=== PATIENT | female | born 1955 | race Caucasian/White ===

== ENCOUNTER 2019-01-09 17:33 | Emergency (ER) | payer OTHER ==
[~2019-01-09] VITALS: Ht 167.6 cm; Wt 78.0 kg
[2019-01-09 20:06] VITALS: BP 143/84
== END 2019-01-09 21:56 | disposition home or self-care (01) ==
LOC: ER 17:34
DX: I83.813 Varicose veins of bilateral lower extremities with pain (principal); E11.9 Type 2 diabetes mellitus without complications; I10 Essential (primary) hypertension; F17.210 Nicotine dependence, cigarettes, uncomplicated; Z98.51 Tubal ligation status; Z88.0 Allergy status to penicillin
CPT/HCPCS: 93971

== ENCOUNTER 2019-02-18 15:28 | Inpatient (IN) | payer OTHER ==
[~2019-02-18] VITALS: Ht 167.6 cm; Wt 86.2 kg
[2019-02-18] MEDS ORDERED: SODIUM CHLORIDE 0.9% 1,000 ML IVB ONE (15:48)
[2019-02-18 16:35] LABS: Basophils # (auto) 0.1 uL; Basophils % (auto) 1.2 % (0.0-2.0); Eosinophils # (auto) 0.2 uL; Eosinophils % (auto) 3.1 % (0.0-7.0); Hematocrit 44.2 % (36.0-46.0); Hemoglobin 14.7 g/dL (12.2-16.2); Lymphocytes # (auto) 1.5 uL; Mean Corpuscular Hgb Conc. 33.1 g/dL (32.0-36.0); Mean Corpuscular Volume 90.5 fL (80.0-100.0); Monocytes # (auto) 0.5 uL; Monocytes % (auto) 9.1 % (0.0-12.0); Neutrophils # (auto) 3.5 uL; Neutrophils % (auto) 60.6 % (37.0-80.0); Platelet Count (auto) 141 10^3/uL (140-450); Red Blood Cells 4.89 10^6/uL (4.0-5.20); Red Cell Distribution Width 14.3 % (11.8-14.3); White Blood Cell 5.8 10^3/uL (4.4-10.8)
[2019-02-18 16:38] LABS: Alanine Aminotransferase 20 U/L (13-56); Albumin 2.7 g/dL (3.4-5.0); Anion Gap 12 (5-15); Aspartate Aminotransferase 14 U/L (15-37); BUN/Creatinine Ratio 15.9; Blood Urea Nitrogen 13 mg/dL (7-18); Calcium 7.8 mg/dL (8.5-10.1); Carbon Dioxide 21 mmol/L (21-32); Chloride 114 mmol/L (98-107); GFR African American 91 mL/min; GFR Non-African American 75 mL/min; Glucose 106 mg/dL (74-106); Magnesium 1.9 mg/dL (1.6-2.6); Potassium 3.5 mmol/L (3.5-5.1); Salicylate 4.1 mg/dL (2.8-20.0); Sodium 147 mmol/L (136-145)
[2019-02-18 16:40] LABS: Acetaminophen < 2.0 ug/mL (10-30); Alkaline Phosphatase 70 U/L (45-117); Bilirubin, Total 0.1 mg/dL (0.2-1.0); Total Protein 5.9 g/dL (6.4-8.2)
[2019-02-18 17:41] LABS: Amphetamine Screen, Urine POSITIVE (NEGATIVE); Barbiturate Scree,Urine NEGATIVE (NEGATIVE); Benzodiazephine Screen, Urine NEGATIVE (NEGATIVE); Cannabinoid Screen, Urine NEGATIVE (NEGATIVE); Cocaine Screen, Urine NEGATIVE (NEGATIVE); Opiate Scree,Urine NEGATIVE (NEGATIVE); Phencyclidine Screen, Urine NEGATIVE (NEGATIVE)
[2019-02-18 17:45] LABS: Urine Bacteria FEW /hpf (None Seen); Urine Blood Negative /uL (Negative); Urine Hyaline Cast MANY /lpf (0 - 2); Urine Mucus FEW (None Seen); Urine Specific Gravity 1.014 (1.001-1.035); Urine WBC 61 /hpf (0 - 5)
[2019-02-18] MEDS ORDERED: MORPHINE SULF INJ 2 MG/ML SYRINGE 1ML IV PRN ×2 (19:15)
[2019-02-18] MEDS ORDERED: HYDROcodone-ACET 5/325MG TAB PO PRN (19:15)
[2019-02-18] MEDS ORDERED: ACETAMINOPHEN 500 MG TAB PO PRN (19:15)
[2019-02-18] MEDS ORDERED: LORazepam 2MG/ML-1ML VIAL IV PRN (19:15)
[2019-02-18] MEDS ORDERED: NITROGLYCERIN 0.4 MG SL TAB SL PRN (19:15)
[2019-02-18] MEDS ORDERED: ONDANSETRON HCL 4 MG/2 ML VIAL IV PRN (19:15)
[2019-02-18] MEDS ORDERED: LORazepam 2MG/ML-1ML VIAL IV ONE (19:15)
[2019-02-18] MEDS ORDERED: cefTRIAXone 1GM/50ML D5W 50 ML IV ONE (19:30)
[2019-02-18] MEDS ORDERED: FOLIC ACID 1 MG, MULTIPLE VITAMIN 10 ML, MAGNESIUM SULF SDV 50% 8 MEQ, THIAMINE INJ 100... INJ SCH ×5 (20:00)
--- NOTE | 2019-02-18 21:50 | NUR ---
OPENING NOTE/PT ENCOUNTER PT ARRIVED ON UNIT AT 2150 VIA STRETCH WITH NO S/S OF DISTRESS OR SOB. WILL CONTINUE TO MONITOR FOR CHANGES. SITTER IS PRESENT IN ROOM.
--- NOTE | 2019-02-18 22:14 | NUR ---
POISON CONTROL CONTACT BIANCA FROM POISON CONTROL CALLED AND REQUESTED AN UPDATE ON PTS SALICYLATE LEVEL. CURRENT LEVEL IS 5.0, PREVIOUS LEVEL WAS 4.1/ POISON CONTROL SUGGESTED THAT A REPEAT SALICYLATE LEVEL BE DONE. WILL FOLLOW UP.
[2019-02-18 22:20] VITALS: BP 130/66
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
--- NOTE | 2019-02-18 23:20 | NUR ---
PT STATES THAT SHE WISHED TO LEAVE AMA PT STATES THAT SINCE SHE HAS 'BEEN HERE FOR MORE THAN 6 HOURS', SHE WISHES TO LEAVE. DISCUSSED WITH PT REASONS FOR LEAVING AND THE BENEFITS OF STAYING; TELE-PSYCHE CONSULT TO ENSURE OF HER SAFETY AND WELL BEING WELL ELEVATED LEVELS OF MEDICATION IN HER SYSTEM. PT STATES THAT SHE UNDERSTANDS AND STILL WISHES TO LEAVE AND ASKED HOW SHE CAN GO ABOUT THIS. I TOLD HER I WOULD SPEAK TO MY CHARGE.
--- NOTE | 2019-02-18 23:26 | NUR ---
TELE-PSYCH CONSULT CALLED SPOKE TO LALY VIA PHONE TO SET UP TELE-PSYCH CONSULT
--- NOTE | 2019-02-18 23:40 | NUR ---
SPOKE WITH CHARGE SPOKE WITH KEITH ABOUT THE WISHES OF PT LEAVING AGAINST MEDICAL ADVICE. KEITH CALLED LEILA ONEILL TO CONFIRM THE LEGALITY OF THE PT LEAVING. AFTER HAVING SPOKE WITH LEILA ONEILL, KEITH INFORMED ME THAT THE PT COULD LEAVE AMA AND TO PROVIDE ADDITIONAL EDUCATION REGARDING POC OF PT.
--- NOTE | 2019-02-18 23:49 | NUR ---
PT STATES THAT HER FRIEND MALENA WOULD BE ABLE TO PICK HER UP FROM [facility]
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
--- NOTE | 2019-02-19 00:21 | NUR ---
IVS DISCONTINUED BOTH IVS, ONE IN RIGHT HAND AND ONE IN LEFT HAND HAVE BEEN DISCONTINUED, DUE TO PT DESIRES TO LEAVE AMA. BOTH CATHETERS ARE FULLY INTACT WITH NO S/S OF INFECTION. PRESSURE WAS APPLIED TO BOTH SITES FOR 3 MINUTES AND THEN WRAPPED IN COBAN. EDUCATED PT REGARDING THE NEED FOR COBAN AND GAUZE TO STAY ON FOR AT LEAST 30 MINUTES. PT TOLERATED REMOVALS WELL. PT IS ASYMPTOMATIC.
--- NOTE | 2019-02-19 00:28 | NUR ---
PT LEFT UNIT PT LEFT UNIT WITH IV'S REMOVED AND TELE BOX LEFT IN ROOM. PT AMBULATED OFF UNIT WITH FRIEND MALENA. REASSURED PT THAT IF SHE NEEDS ANYTHING TO COME BACK TO THE ED OR TO THE CRISIS CENTER. PT VERBALIZED UNDERSTANDING.
[2019-02-19] MEDS ORDERED: cefTRIAXone 1GM/50ML D5W 50 ML IV SCH (09:00)
[2019-02-19] MEDS ORDERED: DULoxetine HCL 30 MG CAP PO SCH (10:00)
== END 2019-02-19 00:30 | disposition left against medical advice (07) | DRG 918 ==
LOC: EDBD 15:28 → ER 15:47 → TELE 15:48 → TELE-WESTW 21:44
PROVIDERS: ADMIT Nurse Practitioner Acute Care; ATTEND Nurse Practitioner Acute Care
DX: T43.591A Poisoning by other antipsychotics and neuroleptics, accidental (unintentional), initial encounter (principal); E44.0 Moderate protein-calorie malnutrition; N39.0 Urinary tract infection, site not specified; T42.8X1A Poisoning by antiparkinsonism drugs and other central muscle-tone depressants, accidental (unintentional), initial encounter; F32.9 Major depressive disorder, single episode, unspecified; E11.9 Type 2 diabetes mellitus without complications; I10 Essential (primary) hypertension; F41.9 Anxiety disorder, unspecified; M54.9 Dorsalgia, unspecified; F17.210 Nicotine dependence, cigarettes, uncomplicated; F15.90 Other stimulant use, unspecified, uncomplicated; E86.0 Dehydration; Z82.49 Family history of ischemic heart disease and other diseases of the circulatory system; Z68.30 Body mass index [BMI] 30.0-30.9, adult; Y92.098 Other place in other non-institutional residence as the place of occurrence of the external cause; Z88.0 Allergy status to penicillin; Z83.3 Family history of diabetes mellitus; Z53.21 Procedure and treatment not carried out due to patient leaving prior to being seen by health care provider
CPT/HCPCS: 36415; 71045; 80053; 80307; 80320; 80329; 81001; 83735; 85025; 93005; 94761; 96361; 96365; 96367; G0378; J0696

== ENCOUNTER 2019-02-23 10:28 | Inpatient (IN) | payer OTHER ==
[~2019-02-23] VITALS: Ht 167.6 cm; Wt 79.5 kg
[2019-02-23] MEDS ORDERED: SODIUM CHLORIDE 0.9% 1,000 ML IVB ONE (10:35)
[2019-02-23] MEDS ORDERED: MORPHINE SULFATE 4 MG/ML SYR/VIAL IV ONE (10:45)
[2019-02-23] MEDS ORDERED: ONDANSETRON HCL 4 MG/2 ML VIAL IV ONE (10:45)
[2019-02-23 10:57] LABS: Basophils # (auto) 0 uL; Basophils % (auto) 0.3 % (0.0-2.0); Eosinophils # (auto) 0.1 uL; Eosinophils % (auto) 0.7 % (0.0-7.0); Hematocrit 48.3 % (36.0-46.0); Hemoglobin 15.9 g/dL (12.2-16.2); Lymphocytes # (auto) 1.1 uL; Lymphocytes % (auto) 8.4 % (10.0-50.0); Mean Corpuscular Hemoglobin 29.5 pg (28.0-32.0); Mean Corpuscular Hgb Conc. 32.8 g/dL (32.0-36.0); Mean Corpuscular Volume 89.8 fL (80.0-100.0); Monocytes # (auto) 0.7 uL; Monocytes % (auto) 5.5 % (0.0-12.0); Neutrophils # (auto) 11.4 uL; Neutrophils % (auto) 85.1 % (37.0-80.0); Platelet Count (auto) 149 10^3/uL (140-450); Red Blood Cells 5.38 10^6/uL (4.0-5.20); Red Cell Distribution Width 14.5 % (11.8-14.3); White Blood Cell 13.4 10^3/uL (4.4-10.8)
[2019-02-23 11:11] LABS: Calcium 8.6 mg/dL (8.5-10.1); Magnesium 2.5 mg/dL (1.6-2.6); Potassium 3.9 mmol/L (3.5-5.1)
[2019-02-23 11:14] LABS: BUN/Creatinine Ratio 18.5; Bilirubin, Total 0.6 mg/dL (0.2-1.0)
[2019-02-23] MEDS ORDERED: metroNIDAZOLE 500MG/100ML 100 ML IV ONE (11:45)
[2019-02-23] MEDS ORDERED: NITROGLYCERIN 0.4 MG SL TAB SL PRN (13:15)
[2019-02-23] MEDS ORDERED: PROMETHAZINE HCL 25 MG/ML 1ML IV PRN (13:15)
[2019-02-23] MEDS ORDERED: MORPHINE SULF INJ 2 MG/ML SYRINGE 1ML IV PRN (13:15)
[2019-02-23] MEDS ORDERED: DEXTROSE (50%) 50ML SYRG IV PRN (13:15)
[2019-02-23] MEDS ORDERED: SODIUM CHLORIDE 0.9% 2,000 ML IV ONE (13:15)
[2019-02-23] MEDS ORDERED: LEVOFLOXACIN 500MG 100 ML IV ONE (13:15)
[2019-02-23] MEDS: FAMOTIDINE (10MG/ML) 2ML VL IV SCH (13:36)
[2019-02-23] MEDS: metroNIDAZOLE 500MG/100ML 100 ML IV SCH ×2 (14:00→22:00)
[2019-02-23] MEDS: InsuLIN REG 1unit/0.01ml Soln (100units/ml) SC SCH ×2 (17:00→22:00)
[2019-02-23] MEDS: traMADol HCL 50 MG TAB PO PRN ×3 (17:24→23:57)
[2019-02-23] MEDS: ACCU-CHEK COMFORT CURVE STRIP VI SCH ×2 (17:28→22:00)
[2019-02-23] MEDS: SODIUM CHLORIDE 0.9% 1,000 ML IV SCH ×2 (17:57→23:10)
[2019-02-23] MEDS ORDERED: VANCOMYCIN HCL 125MG/5ML ORAL SOL GT SCH (18:00)
[2019-02-23 19:34] LABS: Urine Bacteria NONE SEEN /hpf (None Seen); Urine Mucus FEW (None Seen); Urine WBC 65 /hpf (0 - 5)
[2019-02-23 19:35] LABS: Urine Blood Negative /uL (Negative); Urine Specific Gravity 1.012 (1.001-1.035)
[2019-02-24] VITALS (8 sets, daily range): BP systolic 99–138; BP diastolic 59–85
[2019-02-24] MEDS ORDERED: VANCOMYCIN HCL 125MG/5ML ORAL SOL PO ONE
[2019-02-24] MEDS: FAMOTIDINE (10MG/ML) 2ML VL IV SCH ×2 (00:48→14:44)
[2019-02-24] MEDS: TEMAZEPAM 15 MG CAP PO PRN ×2 (00:48→20:23)
--- NOTE | 2019-02-24 00:56 | NUR ---
Telemetry admit from ER EDGARDO HERNANDEZ admitted to Telemetry unit after SBAR received. Patient oriented to THEA TREJO RN primary RN, unit, room, bed, and unit policies regarding patient care and visiting hours. Patient now on continuous telemetry monitoring, tele box # 13 and telemetry reading on arrival to unit is SR. Patient placed on bedside oxygen, weighed by bedscale and encouraged to call if they need something. Patient placed on enhanced contact isolation to rule out for c-diff. All questions and concerns addressed, patient verbalized understanding. Note:
[2019-02-24] MEDS: ACETAMINOPHEN 500 MG TAB PO PRN ×2 (05:01→15:57)
[2019-02-24] MEDS: metroNIDAZOLE 500MG/100ML 100 ML IV SCH ×3 (05:02→20:23)
[2019-02-24] MEDS: VANCOMYCIN HCL 125MG/5ML ORAL SOL PO SCH ×4 (06:00→20:23)
[2019-02-24] MEDS: SODIUM CHLORIDE 0.9% 1,000 ML IV SCH ×2 (06:01→20:22)
[2019-02-24] MEDS: InsuLIN REG 1unit/0.01ml Soln (100units/ml) SC SCH ×4 (06:18→20:30)
[2019-02-24] MEDS: ACCU-CHEK COMFORT CURVE STRIP VI SCH ×4 (06:19→20:23)
[2019-02-24 06:36] LABS: Basophils # (auto) 0 uL; Basophils % (auto) 0.2 % (0.0-2.0); Eosinophils # (auto) 0.2 uL; Hematocrit 41.2 % (36.0-46.0); Hemoglobin 13.7 g/dL (12.2-16.2); Lymphocytes # (auto) 0.9 uL; Lymphocytes % (auto) 11.9 % (10.0-50.0); Mean Corpuscular Hemoglobin 30.1 pg (28.0-32.0); Mean Corpuscular Hgb Conc. 33.3 g/dL (32.0-36.0); Mean Corpuscular Volume 90.3 fL (80.0-100.0); Monocytes # (auto) 0.6 uL; Monocytes % (auto) 7.4 % (0.0-12.0); Neutrophils % (auto) 78.5 % (37.0-80.0); Platelet Count (auto) 110 10^3/uL (140-450); Red Blood Cells 4.56 10^6/uL (4.0-5.20); Red Cell Distribution Width 14.4 % (11.8-14.3); White Blood Cell 7.6 10^3/uL (4.4-10.8)
[2019-02-24 06:55] LABS: Albumin 2.6 g/dL (3.4-5.0); Calcium 7.7 mg/dL (8.5-10.1); Potassium 3.6 mmol/L (3.5-5.1)
[2019-02-24 06:58] LABS: BUN/Creatinine Ratio 17.2; Bilirubin, Total 0.4 mg/dL (0.2-1.0); Total Protein 5.7 g/dL (6.4-8.2)
--- NOTE | 2019-02-24 07:30 | NUR ---
Opening Shift Note Assumed care of patient, awake and alert. No S/S of distress/SOB. Patient reported intermittent abdominal pain and diarrhea. Instructed on POC-continue IV fluids, IV and oral antibiotics. Patient informed to call for assist PRN, will continue to monitor for changes Q1hr and PRN.
[2019-02-24] MEDS: traMADol HCL 50 MG TAB PO PRN ×2 (08:30→15:56)
[2019-02-24] MEDS ORDERED: LEVOFLOXACIN 500MG 100 ML IV SCH (10:00)
[2019-02-24] MEDS: Glucerna Carbsteady SHAKE Vanilla 8oz PO SCH (18:08)
[2019-02-25] MEDS: FAMOTIDINE (10MG/ML) 2ML VL IV SCH ×2 (02:53→21:52)
[2019-02-25] MEDS: ACETAMINOPHEN 500 MG TAB PO PRN (02:53)
[2019-02-25] MEDS: traMADol HCL 50 MG TAB PO PRN ×3 (02:59→20:26)
[2019-02-25 05:08] VITALS: BP 125/69
[2019-02-25] MEDS: SODIUM CHLORIDE 0.9% 1,000 ML IV SCH ×3 (05:10→20:27)
[2019-02-25] MEDS: VANCOMYCIN HCL 125MG/5ML ORAL SOL PO SCH ×4 (05:47→21:52)
[2019-02-25] MEDS: InsuLIN REG 1unit/0.01ml Soln (100units/ml) SC SCH ×4 (05:47→21:53)
[2019-02-25] MEDS: ACCU-CHEK COMFORT CURVE STRIP VI SCH ×4 (05:47→21:52)
[2019-02-25] MEDS: metroNIDAZOLE 500MG/100ML 100 ML IV SCH (05:47)
[2019-02-25 06:37] LABS: Basophils # (auto) 0 uL; Basophils % (auto) 0.3 % (0.0-2.0); Eosinophils # (auto) 0.2 uL; Eosinophils % (auto) 3.2 % (0.0-7.0); Hematocrit 40.5 % (36.0-46.0); Hemoglobin 13.7 g/dL (12.2-16.2); Lymphocytes # (auto) 1.2 uL; Lymphocytes % (auto) 18.1 % (10.0-50.0); Mean Corpuscular Hemoglobin 30.4 pg (28.0-32.0); Mean Corpuscular Hgb Conc. 33.9 g/dL (32.0-36.0); Mean Corpuscular Volume 89.7 fL (80.0-100.0); Monocytes # (auto) 0.6 uL; Monocytes % (auto) 9.1 % (0.0-12.0); Neutrophils # (auto) 4.8 uL; Neutrophils % (auto) 69.3 % (37.0-80.0); Platelet Count (auto) 134 10^3/uL (140-450); Red Blood Cells 4.52 10^6/uL (4.0-5.20); Red Cell Distribution Width 14.2 % (11.8-14.3); White Blood Cell 6.9 10^3/uL (4.4-10.8)
[2019-02-25 06:41] LABS: BUN/Creatinine Ratio 15.1; Calcium 7.7 mg/dL (8.5-10.1); Potassium 3.7 mmol/L (3.5-5.1)
[2019-02-25 08:00] VITALS: BP 144/96
--- NOTE | 2019-02-25 08:00 | NUR ---
Opening note Assumed care of patient awake and alert. No S/S of distress noted. Pt has a complaint of abd pain and reports having 3 episodes of diarrhea yesterday. Pt updated on POC for the day and all questions answered. Bed is in lowest, locked position with side rails up x2 and call light within reach. Will continue to monitor Q1h and PRN.
[2019-02-25 09:00] VITALS: BP 144/96
[2019-02-25] MEDS: Glucerna Carbsteady SHAKE Vanilla 8oz PO SCH ×3 (09:00→18:34)
[2019-02-25 13:00] VITALS: BP 152/85
[2019-02-25] MEDS: metroNIDAZOLE 500 MG TAB PO SCH ×2 (14:50→21:52)
[2019-02-25] MEDS: HYOSCYAMINE SULF 0.125 MG ODT TAB PO PRN (14:51)
[2019-02-25 17:00] VITALS: BP 141/85
[2019-02-25 21:47] VITALS: BP 142/96
[2019-02-26 04:58] VITALS: BP 119/75
[2019-02-26] MEDS: ACETAMINOPHEN 500 MG TAB PO PRN (05:04)
[2019-02-26] MEDS: metroNIDAZOLE 500 MG TAB PO SCH ×3 (05:52→22:02)
[2019-02-26] MEDS: VANCOMYCIN HCL 125MG/5ML ORAL SOL PO SCH ×4 (05:52→22:02)
[2019-02-26] MEDS: InsuLIN REG 1unit/0.01ml Soln (100units/ml) SC SCH ×4 (06:22→22:00)
[2019-02-26] MEDS: ACCU-CHEK COMFORT CURVE STRIP VI SCH ×4 (06:22→22:03)
[2019-02-26 08:00] VITALS: BP 146/96
--- NOTE | 2019-02-26 08:03 | NUR ---
Opening Shift Note Assumed care of patient, resting in bed, respirations even and unlabored. No S/S of distress/SOB or pain. POC board updated, will continue to monitor for changes Q1hr and PRN.
[2019-02-26 09:00] VITALS: BP 146/96
[2019-02-26] MEDS: Glucerna Carbsteady SHAKE Vanilla 8oz PO SCH ×3 (10:41→17:45)
[2019-02-26] MEDS: FAMOTIDINE (10MG/ML) 2ML VL IV SCH ×2 (10:41→22:02)
--- NOTE | 2019-02-26 11:10 | NUR ---
PT OFF TELE MONITOR. PT NOT IN ROOM, AMA SIGNED FOR SMOKE. Signed: 02/26/19 at 1114 by DARKE WILDE <Co-Signature Required> Co-Signed: 02/26/19 at 1114 by Maty Melgar RN RN
[2019-02-26] MEDS: SODIUM CHLORIDE 0.9% 1,000 ML IV SCH ×2 (11:54→21:10)
--- NOTE | 2019-02-26 12:19 | NUR ---
Nutrition Assessment Notes please see attached link for complete assessment Est. Needs ABW [id number] kcal (23-25 kcal/kgBW), 72-79 gms pro (1.0-1.1 gms/kgBW). Will continue to monitor pertinent labs and reassess nutrient need prn Addendum: 02/26/19 at [address] Amended: Links added.
[2019-02-26 12:37] VITALS: BP 118/83
--- NOTE | 2019-02-26 13:40 | NUR ---
PATIENT ROUNDS PATIENT STATED TO HAVE HAD TWO BOWEL MOVEMENTS ON 02/26. PER PATIENT ABDOMINAL DISCOMFORT/PAIN OCCURRED AFTER EATING MEALS, FOLLOWED BY BOWEL MOVEMENTS BOTH TIMES, WHICH RELIEVED SOME OF THE DISCOMFORT. PATIENT STATED "THEY WERE SOFT, BUT BETTER THAN YESTERDAY" REFERRING TO CONSISTENCY OF BM. PATIENT STATED SHE WAS CURRENTLY COMFORTABLE AND DID NOT NEED ANYTHING AT THAT TIME. BED IN LOWEST POSITION, BRAKES LOCKED, AND CALL LIGHT WITHIN REACH. Signed: 02/26/19 at 1734 by DRAKE WILDE <Co-Signature Required> Co-Signed: 02/26/19 at 1734 by Maty Melgar RN RN
[2019-02-26 16:56] VITALS: BP 147/89
--- NOTE | 2019-02-26 19:15 | NUR ---
OPEN SHIFT NOTE PATIENT IS ALERT AND ORIENTED X4 ON ROOM AIR. PATIENT COMPLAINS OF PAIN AT THE IV SITE. IV REMOVED WITH STERILE TECHNIQUE, PATIENT TOLERATED WELL. POC WAS DISCUSSED AND QUESTIONS ANSWERED. BED IS LOCKED IN LOWEST POSITION WITH SIDE RAILS UP X2 FOR SAFETY. CALL LIGHT IS WITHIN REACH AND PATIENT ENCOURAGED TO CALL IF NEEDS ANYTHING. WILL CONTINUE TO ROUND Q1HR AND PRN.
--- NOTE | 2019-02-26 20:00 | NUR ---
IV insertion IV access obtained, via clean sterile technique by inserting 24 gauge catheter in the left hand after 2 attempt(s). IV secured properly. No trauma to site. Patient tolerated well.
[2019-02-26] MEDS: traMADol HCL 50 MG TAB PO PRN (20:53)
[2019-02-26 21:46] VITALS: BP 157/106
[2019-02-26] MEDS: TEMAZEPAM 15 MG CAP PO PRN (22:04)
[2019-02-26] MEDS: HYOSCYAMINE SULF 0.125 MG ODT TAB PO PRN (22:04)
[2019-02-27] MEDS: SODIUM CHLORIDE 0.9% 1,000 ML IV SCH ×2 (01:16→07:10)
[2019-02-27 05:00] VITALS: BP 134/78
[2019-02-27] MEDS: VANCOMYCIN HCL 125MG/5ML ORAL SOL PO SCH ×2 (05:58→11:55)
[2019-02-27] MEDS: metroNIDAZOLE 500 MG TAB PO SCH (05:58)
[2019-02-27] MEDS: ACCU-CHEK COMFORT CURVE STRIP VI SCH ×2 (06:03→11:30)
[2019-02-27] MEDS: HYOSCYAMINE SULF 0.125 MG ODT TAB PO PRN (06:03)
[2019-02-27] MEDS: InsuLIN REG 1unit/0.01ml Soln (100units/ml) SC SCH ×2 (06:03→11:30)
[2019-02-27 08:00] VITALS: BP 146/84
[2019-02-27] MEDS: Glucerna Carbsteady SHAKE Vanilla 8oz PO SCH ×2 (08:00→12:00)
--- NOTE | 2019-02-27 08:00 | NUR ---
OPENING SHIFT NOTE SHIFT REPORT RECEIVED FROM CUSTOMER ACCOUNT EXECUTIVE RN. PATIENT ROUNDS DONE, PATIENT WAS NOT IN ROOM (AMA TO SMOKE ON FILE).
--- NOTE | 2019-02-27 08:30 | NUR ---
PATIENT ROUNDS PATIENT IS DANGLING FEET AT EDGE OF BED, AOX4, NO SIGNS OF DISTRESS AT THIS TIME. PATIENT REPORTS ABDOMINAL PAIN AND FEELING CONSTIPATED LAST NIGHT. STATES PAIN IS CURRENTLY UNDER CONTROL, BUT STILL FEELS CONSTIPATED. PER PATIENT, WAS ABLE TO EAT BREAKFAST WITHOUT ABDOMINAL PAIN FOLLOWING MEAL. BED IN LOWEST POSITION, BRAKES LOCKED, AND CALL LIGHT WITHIN REACH. PATIENT UPDATED ON POC, PT VERBALIZED UNDERSTANDING.
--- NOTE | 2019-02-27 10:20 | NUR ---
DR KIRK AT BEDSIDE.
[2019-02-27] MEDS: FAMOTIDINE (10MG/ML) 2ML VL IV SCH (10:38)
[2019-02-27 12:21] VITALS: BP 146/84
--- NOTE | 2019-02-27 13:55 | NUR ---
Discharge instructions given as ordered. Encourage to follow up with PMD as instructed. All questions and concerns addressed. Patient verbalized understanding. Medication reconciliation form completed and copy given to patient. IV removed with catheter intact, pressure dressing applied. Telemetry unit returned to ICU. Patient ambulated to vehicle, refused wheelchair, with all personal belongings, accompanied by staff and family member. No distress noted at time of departure. BP was 141/84 mmHg
== END 2019-02-27 13:55 | disposition home or self-care (01) | DRG 872 ==
LOC: ER 10:29 → TELE 10:30 → TELE-EAST 23:32
PROVIDERS: ADMIT Internal Medicine; ATTEND Internal Medicine Pulmonary Disease
DX: A41.9 Sepsis, unspecified organism (principal); A04.72 Enterocolitis due to Clostridium difficile, not specified as recurrent; E44.0 Moderate protein-calorie malnutrition; K57.32 Diverticulitis of large intestine without perforation or abscess without bleeding; D35.00 Benign neoplasm of unspecified adrenal gland; F41.9 Anxiety disorder, unspecified; E11.9 Type 2 diabetes mellitus without complications; F19.10 Other psychoactive substance abuse, uncomplicated; F17.210 Nicotine dependence, cigarettes, uncomplicated; F32.9 Major depressive disorder, single episode, unspecified; I10 Essential (primary) hypertension; K76.0 Fatty (change of) liver, not elsewhere classified; N20.0 Calculus of kidney; Z82.49 Family history of ischemic heart disease and other diseases of the circulatory system; Z68.28 Body mass index [BMI] 28.0-28.9, adult; Z83.3 Family history of diabetes mellitus; Z88.0 Allergy status to penicillin
CPT/HCPCS: 36415; 74176; 80048; 80053; 81001; 82962; 83036; 83690; 83735; 85025; 85652; 86141; 87045; 87493; 87899; 94761; 96361; 96365; 96367; 96375; G0378; J1956; J2405; J3490

== ENCOUNTER 2022-09-13 17:18 | Inpatient (IN) | payer OTHER, MEDICARE ==
[~2022-09-13] VITALS: Ht 167.6 cm; Wt 80.9 kg
[2022-09-13 18:57] LABS: Basophils # (auto) 0 10 ^3/uL (0-0.2); Basophils % (auto) 0.5 % (0.0-2.0); Eosinophils # (auto) 0.1 10 ^3/uL (0-0.8); Eosinophils % (auto) 1.5 % (0.0-7.0); Hematocrit 46.3 % (36.0-46.0); Hemoglobin 15.5 g/dL (12.2-16.2); Lymphocytes # (auto) 1.3 10 ^3/uL (0.4-5.4); Lymphocytes % (auto) 18.6 % (10.0-50.0); Mean Corpuscular Hemoglobin 29.4 pg (28.0-32.0); Mean Corpuscular Hgb Conc. 33.4 g/dL (32.0-36.0); Mean Corpuscular Volume 88.1 fL (80.0-100.0); Monocytes # (auto) 0.3 10 ^3/uL (0-1.3); Monocytes % (auto) 3.5 % (0.0-12.0); Neutrophils # (auto) 5.5 10 ^3/uL (1.6-8.6); Neutrophils % (auto) 75.9 % (37.0-80.0); Nucleated Red Blood Cells % 0.1 %; Red Blood Cells 5.26 10^6/uL (4.0-5.20); Red Cell Distribution Width 14.6 % (11.8-14.3); White Blood Cell 7.2 10^3/uL (4.4-10.8)
[2022-09-13 19:08] LABS: Albumin 3.5 g/dL (3.4-5.0); Calcium 9.1 mg/dL (8.5-10.1); Potassium 3.8 mmol/L (3.5-5.1)
[2022-09-13 19:11] LABS: BUN/Creatinine Ratio 24.4
[2022-09-13 19:14] LABS: Bilirubin, Total 0.4 mg/dL (0.2-1.0); Total Protein 7.1 g/dL (6.4-8.2)
[2022-09-13] MEDS ORDERED: FLUORESCEIN SOD OPTH TEST STRIP RIGHTEYE ONE (23:45)
[2022-09-14] MEDS ORDERED: DEXTROSE (50%) 50ML SYRG IV PRN (03:45)
[2022-09-14] MEDS ORDERED: ACETAMINOPHEN 325 MG TAB PO PRN (03:45)
[2022-09-14] MEDS ORDERED: ONDANSETRON HCL 4 MG/2 ML VIAL IV PRN (03:45)
[2022-09-14] MEDS: SODIUM CHLORIDE 0.9% 1,000 ML IV SCH ×2 (04:21→20:25)
[2022-09-14] MEDS: DexAMETHasone 4 MG TAB PO SCH (04:22)
[2022-09-14 04:28] LABS: Basophils # (auto) 0 10 ^3/uL (0-0.2); Basophils % (auto) 0.6 % (0.0-2.0); Eosinophils # (auto) 0.3 10 ^3/uL (0-0.8); Eosinophils % (auto) 3.8 % (0.0-7.0); Hematocrit 45.5 % (36.0-46.0); Hemoglobin 14.7 g/dL (12.2-16.2); Lymphocytes % (auto) 28.7 % (10.0-50.0); Mean Corpuscular Hemoglobin 28.7 pg (28.0-32.0); Mean Corpuscular Hgb Conc. 32.2 g/dL (32.0-36.0); Mean Corpuscular Volume 89.1 fL (80.0-100.0); Monocytes # (auto) 0.6 10 ^3/uL (0-1.3); Neutrophils # (auto) 4.1 10 ^3/uL (1.6-8.6); Neutrophils % (auto) 57.9 % (37.0-80.0); Nucleated Red Blood Cells % 0.1 %; Red Cell Distribution Width 15.2 % (11.8-14.3); White Blood Cell 7.1 10^3/uL (4.4-10.8)
[2022-09-14 04:31] LABS: Albumin 3.5 g/dL (3.4-5.0); Calcium 8.7 mg/dL (8.5-10.1); Potassium 4.2 mmol/L (3.5-5.1)
[2022-09-14 04:35] LABS: BUN/Creatinine Ratio 28.6; Bilirubin, Total 0.4 mg/dL (0.2-1.0); Total Protein 6.1 g/dL (6.4-8.2)
[2022-09-14] MEDS ORDERED: MORPHINE SULFATE INJ 2 MG/ml SYRG IV PRN (05:00)
[2022-09-14] MEDS ORDERED: NITROGLYCERIN 0.4 MG SL TAB SL PRN (05:00)
[2022-09-14 06:31] LABS: Urine Bacteria FEW /hpf (None Seen); Urine Blood Negative /uL (Negative); Urine Budding Yeast OCCASIONAL /hpf (None Seen); Urine Mucus FEW (None Seen); Urine Specific Gravity 1.018 (1.001-1.035); Urine WBC 175 /hpf (0 - 5)
[2022-09-14] MEDS: ACCU-CHEK COMFORT CURVE STRIP VI SCH ×4 (06:53→22:00)
[2022-09-14] MEDS: InsuLIN REG 1unit/0.01ml Soln (100units/ml) SC SCH ×4 (06:54→21:42)
[2022-09-14] MEDS: ASPirin 81 mg TAB PO SCH (09:24)
[2022-09-14] MEDS: FAMOTIDINE (10MG/ML) 2ML VL IV SCH (09:24)
[2022-09-14] MEDS: HYDROcodone-ACET 5/325MG TAB PO PRN (15:25)
[2022-09-14 16:52] VITALS: BP 120/76
[2022-09-14 22:00] VITALS: BP 124/70
[2022-09-15] VITALS (7 sets, daily range): BP systolic 94–128; BP diastolic 64–94
[2022-09-15 05:27] LABS: Basophils # (auto) 0 10 ^3/uL (0-0.2); Basophils % (auto) 0.2 % (0.0-2.0); Eosinophils # (auto) 0 10 ^3/uL (0-0.8); Eosinophils % (auto) 0.5 % (0.0-7.0); Hematocrit 42.7 % (36.0-46.0); Hemoglobin 14.4 g/dL (12.2-16.2); Lymphocytes # (auto) 1.1 10 ^3/uL (0.4-5.4); Lymphocytes % (auto) 13.6 % (10.0-50.0); Mean Corpuscular Hemoglobin 29.4 pg (28.0-32.0); Mean Corpuscular Hgb Conc. 33.6 g/dL (32.0-36.0); Mean Corpuscular Volume 87.3 fL (80.0-100.0); Monocytes # (auto) 0.5 10 ^3/uL (0-1.3); Monocytes % (auto) 6.3 % (0.0-12.0); Neutrophils # (auto) 6.7 10 ^3/uL (1.6-8.6); Neutrophils % (auto) 79.4 % (37.0-80.0); Nucleated Red Blood Cells % 0.1 %; Red Blood Cells 4.89 10^6/uL (4.0-5.20); Red Cell Distribution Width 14.5 % (11.8-14.3); White Blood Cell 8.4 10^3/uL (4.4-10.8)
[2022-09-15 05:42] LABS: Albumin 3.3 g/dL (3.4-5.0); Calcium 8.7 mg/dL (8.5-10.1); Potassium 3.9 mmol/L (3.5-5.1)
[2022-09-15 05:45] LABS: BUN/Creatinine Ratio 34.3; Bilirubin, Total 0.3 mg/dL (0.2-1.0); Total Protein 6.3 g/dL (6.4-8.2)
[2022-09-15] MEDS: InsuLIN REG 1unit/0.01ml Soln (100units/ml) SC SCH (05:54)
[2022-09-15] MEDS: ACCU-CHEK COMFORT CURVE STRIP VI SCH (06:58)
[2022-09-15] MEDS: DexAMETHasone 4 MG TAB PO SCH (08:57)
[2022-09-15] MEDS: FAMOTIDINE (10MG/ML) 2ML VL IV SCH (08:57)
[2022-09-15] MEDS: ASPirin 81 mg TAB PO SCH (08:57)
[2022-09-15] MEDS ORDERED: cefTRIAXone 1GM/50ML D5W 50 ML IV ONE (09:45)
[2022-09-15] MEDS: DOCUSATE SOD 100 MG CAP PO PRN (12:01)
[2022-09-15] MEDS: SODIUM CHLORIDE 0.9% 1,000 ML IV SCH (13:05)
[2022-09-15] MEDS: HYDROcodone-ACET 5/325MG TAB PO PRN (21:18)
[2022-09-16] MEDS ORDERED: MELATONIN 5 MG TAB PO ONE (01:15)
[2022-09-16 05:00] VITALS: BP 106/58
[2022-09-16] MEDS: SODIUM CHLORIDE 0.9% 1,000 ML IV SCH ×2 (05:45→21:50)
[2022-09-16 06:08] LABS: Basophils # (auto) 0 10 ^3/uL (0-0.2); Basophils % (auto) 0.3 % (0.0-2.0); Eosinophils # (auto) 0 10 ^3/uL (0-0.8); Eosinophils % (auto) 0.3 % (0.0-7.0); Hematocrit 43.4 % (36.0-46.0); Hemoglobin 14.4 g/dL (12.2-16.2); Lymphocytes # (auto) 1.3 10 ^3/uL (0.4-5.4); Lymphocytes % (auto) 15.8 % (10.0-50.0); Mean Corpuscular Hemoglobin 29.3 pg (28.0-32.0); Mean Corpuscular Hgb Conc. 33.2 g/dL (32.0-36.0); Mean Corpuscular Volume 88.4 fL (80.0-100.0); Monocytes # (auto) 0.5 10 ^3/uL (0-1.3); Neutrophils # (auto) 6.2 10 ^3/uL (1.6-8.6); Neutrophils % (auto) 77.6 % (37.0-80.0); Red Blood Cells 4.91 10^6/uL (4.0-5.20); Red Cell Distribution Width 14.6 % (11.8-14.3)
[2022-09-16 06:23] LABS: Calcium 8.8 mg/dL (8.5-10.1); Potassium 4.4 mmol/L (3.5-5.1)
[2022-09-16 06:26] LABS: BUN/Creatinine Ratio 37.5
[2022-09-16 08:00] VITALS: BP 120/72
[2022-09-16 09:00] VITALS: BP 130/72
[2022-09-16] MEDS: cefTRIAXone 1GM/50ML D5W 50 ML IV SCH (09:02)
[2022-09-16] MEDS: FAMOTIDINE (10MG/ML) 2ML VL IV SCH (09:04)
[2022-09-16] MEDS: DexAMETHasone 4 MG TAB PO SCH (10:00)
[2022-09-16] MEDS: ASPirin 81 mg TAB PO SCH (10:00)
[2022-09-16] MEDS: DOCUSATE SOD 100 MG CAP PO PRN (11:06)
[2022-09-16 13:25] VITALS: BP 144/80
[2022-09-16 17:00] VITALS: BP 110/84
[2022-09-16] MEDS: HYDROcodone-ACET 5/325MG TAB PO PRN (20:05)
[2022-09-16 22:00] VITALS: BP 130/80
[2022-09-17] MEDS: HYDROcodone-ACET 5/325MG TAB PO PRN ×3 (01:23→10:20)
[2022-09-17 05:00] VITALS: BP 126/79
[2022-09-17 08:00] VITALS: BP 134/79
[2022-09-17] MEDS ORDERED: NITR-52 PO (09:51)
[2022-09-17] MEDS: FAMOTIDINE (10MG/ML) 2ML VL IV SCH (10:19)
[2022-09-17] MEDS: ASPirin 81 mg TAB PO SCH (10:19)
[2022-09-17] MEDS: DexAMETHasone 4 MG TAB PO SCH (10:19)
[2022-09-17] MEDS: cefTRIAXone 1GM/50ML D5W 50 ML IV SCH (10:19)
[2022-09-17 12:00] VITALS: BP 119/83
[2022-09-17 14:13] VITALS: BP 119/83
== END 2022-09-17 14:41 | disposition home or self-care (01) | DRG 69 ==
LOC: ER 17:18 → TELE 09-14 04:48 → TELE-CENTR 09-14 17:01
PROVIDERS: ADMIT Nurse Practitioner Family; ATTEND Internal Medicine Pulmonary Disease
DX: G45.9 Transient cerebral ischemic attack, unspecified (principal); N39.0 Urinary tract infection, site not specified; H02.401 Unspecified ptosis of right eyelid; E11.9 Type 2 diabetes mellitus without complications; F17.210 Nicotine dependence, cigarettes, uncomplicated; Z20.822 Contact with and (suspected) exposure to COVID-19; H49.881 Other paralytic strabismus, right eye; E66.01 Morbid (severe) obesity due to excess calories; Z88.0 Allergy status to penicillin; Z79.899 Other long term (current) drug therapy; Z82.49 Family history of ischemic heart disease and other diseases of the circulatory system; Z83.3 Family history of diabetes mellitus; Z68.28 Body mass index [BMI] 28.0-28.9, adult
CPT/HCPCS: 36415; 70450; 70486; 70496; 70551; 71250; 74176; 80048; 80053; 81001; 82962; 83036; 85025; 87086; 87426; 96365; G0378; J0696; J1815; J3490

== ENCOUNTER 2025-02-11 16:24 | Inpatient (IN) | payer OTHER, MEDICARE ==
[~2025-02-11] VITALS: Ht 167.6 cm; Wt 84.0 kg
[~2025-02-11 16:24] MED LIST: NITR-52 PO
--- NOTE | 2025-02-11 16:45 | ED.PDOC ---
Back pain HPI HPI Comments HPI: Poor Historian. 69-year-old female brought in by ambulance from home for evaluation of three day history of right upper quadrant right lower ribcage pain worse with deep inspiration. Patient who sent by her PCP to rule out rib fractures. Patient had a injury three days ago where a chair/car seat that she was repairing fell and hit her abdomen. However she denies any abdominal pain and she points specifically to an area of pain where she was not injured and had no impact with a seat. Patient denies any other acute symptoms. Past Medical History: Arthritis Past Surgical History: Right shoulder surgery REVIEW OF SYSTEMS: CONSTITUTIONAL: Denies acute: fever, diaphoresis, chills, generalized weakness. HEAD: Denies acute: headache, photophobia Eyes: Denies acute: Double vision, vision loss, eye pain, eye discharge. EARS: Denies acute: tinnitus, hearing loss, ear discharge, ear pain, THROAT: Denies acute: sore throat, swelling, difficulty swallowing , pain with swallowing, change in voice. NECK: Denies acute: neck pain, neck swelling, stiff neck. HEART: Denies acute : chest pain, palpitations, LUNGS: Denies acute: SOB, wheezing, cough, hemoptysis ABDOMEN: Denies acute: , Nausea, Vomiting, diarrhea, melena , hematemesis, hematochezia SKIN: Denies acute: rash, redness, lesions, itchiness. EXTREMITIES: Denies acute: calf pain, numbness, tingling, weakness, denies pain in extremity. Denies acute: Low back pain. Neuro: Denies acute: focal neurological deficit, motor or sensory focal neurological deficit, tremors, seizure like activity, confusion, dizziness, change in mental status, loss of bowel or bladder function, cauda equina like symptoms. : Denies acute: dysuria, hematuria, flank pain, increase in urinary frequency. PSYCH: Denies acute: hallucination, suicidal ideation, homicidal ideation. FEMALE: Denies acute: abnormal vaginal bleeding, foul odor, unusual discharge. PHYSICAL EXAM: General: ----moderate----acute distress, awake and alert. Head: normocephalic, atraumatic. Neck: supple, trachea is midline, no swelling. Throat: Normal phonation. Eyes:, no erythema, no purulent discharge, no proptosis, no icterus. Heart: regular rate, regular rhythm, no significant murmur appreciated. Lungs: no apparent respiratory distress, Able to speak in full sentences. No wheezing, no rhonchi, no crackles. No stridors Clear to auscultation bilaterally. Abdomen: Right upper quadrant/right lower ribcage region tender to palpation, non distended, soft, no guarding, no rebound, + bowel sounds. The ribcage where the area of pain in reveals no contusion no hematoma no swelling no erythema and no crepitus. Neuro: Awake, Alert, oriented to name, self, situation, follows commands GCS=15. Speech is normal. Skin: no petechia, no purpura, no cyanosis, non-pale, not jaundice. Lower extremities: --no - Pitting edema no deformity, no focal swelling, no calf TTP. Makes eye contact. moves all four extremities. Face: no apparent facial droop. ED COURSE: DISCLAIMER: This medical document was created using an electronic medical record system with voice recognition software and computerized dictation system. Although this document has been carefully reviewed, there might still be some phonetic and typographical errors. Occasional wrong-word or "sound-alike" substitutions may have occurred due to the inherent limitations of voice recognition software. These areas are purely typographical due to imperfections of the software programs and do not reflect any compromise in the patient's medical care. Please read the chart carefully and recognize, using context, where these substitutions have occurred. Chief Complaint: Rib Pain Time Seen by MD: 16:28 Primary Care Provider: LACI Reviewed Notes: Allergies Allergies: Coded Allergies: Penicillins (Verified Allergy, Unknown, 09/18/22) Pt received CTX dose previously ( 02-18-2019) with no allergic reaction. Home Meds Reported Medications Etanercept (Enbrel Sureclick) 50 Mg/Ml Inj, 1 SYR SUBCUT QWEEKLY, #4 SYR 5 Refills 02/11/25 Information Source: Patient, Emergency Med Personnel Past Medical History PAST MEDICAL HISTORY: Denies Surgical History: Tubal Ligation CORRECTIONS SPECIALIST History: No Pertinent CORRECTIONS SPECIALIST History Family History Family History: Unknown Social History Smoker: Cigarettes, Less Than 1 Pack/Day Alcohol: Occasionally Drugs: Denies Drug Use Lives In: Home Was a procedure done? Was a procedure done?: No Back Pain Differential Dx Differential Diagnosis: Other (Ddx include but not limitied to gastritis, musculoskeletal pain, radiculopathy, atypical chest pain, dissection, aneurysm, ACS, unstable angina, hiatal hernia, GERD, anxiety, costochondritis, PE, pneumothroax, neoplasm, cardiac ischemia, drug abuse, anemia. ) X-Ray, Labs, Meds, VS Vital Signs Date Time Temp Pulse Resp B/P (MAP) Pulse Ox O2 Delivery O2 Flow Rate FiO2 02/11/25 21:15 96 25 132/77 02/11/25 19:10 116 20 93 Nasal Cannula* 4 36 02/11/25 19:10 97.8 116 20 132/77 (95) 93 97.8 02/11/25 19:00 98.5 118 20 120/74 (89) 91 98.5 02/11/25 17:50 Room Air* 0 21 02/11/25 17:34 98.5 117 20 96/75 (82) 89 98.5 02/11/25 16:33 99.0 116 22 123/78 (93) 96 99.0 Lab Test 02/11/25 20:57 02/11/25 19:02 02/11/25 18:49 02/11/25 18:40 Range/Units Magnesium Level 1.7 1.6-2.6 mg/dL Troponin I High Sensitivity < 3 L 3 L </=34 ng/L Blood Gas Specimen Type Arterial Blood Gas Sample Site Right radial Blood Gas Patient Temperature 37.0 Arterial Blood Date Drawn [id number] Arterial Blood pH 7.430 7.350-7.450 Arterial Blood Partial Pressure CO2 35.0 32.0-45.0 mmHg Arterial Blood Partial Pressure O2 51.1 *L 83.0-108.0 mmHg Arterial Blood HCO3 22.7 21.0-28.0 mmol/L Arterial Blood Oxygen Saturation 87.7 L 94.0-98.0 % Arterial Blood Base Excess -0.9 -2.0-3.0 mmol/L Arterial Blood Oxyhemoglobin 83.8 L 94.0-98.0 % Arterial Blood Carboxyhemoglobin 4.0 H 0.5-1.5 % Arterial Blood Methemoglobin 0.5 0.0-1.5 % Cristofer Test Yes Blood Gas Total Hemoglobin 16.40 H 12.0-16.0 g/dL Blood Gas Modality Room air Blood Gas Spontaneous Rate 20 FiO2 % 21.0 Blood Gas Critical Value Read Back yes Blood Gas Notified Whom md juany ortega Blood Gas Notified Time [id number] Blood Gas Notified By chemical production technician jocelynn martinez Thyroid Stimulating Hormone (TSH) 0.96 0.55-4.78 uIU/mL SARS-CoV-2 Antigen (Rapid) Negative NEGATIVE Test 02/11/25 16:50 Range/Units White Blood Count 8.6 4.4-10.8 10^3/uL Red Blood Count 5.37 H 4.0-5.20 10^6/uL Hemoglobin 16.1 12.2-16.2 g/dL Hematocrit 48.5 H 36.0-46.0 % Mean Corpuscular Volume 90.2 80.0-100.0 fL Mean Corpuscular Hemoglobin 29.9 28.0-32.0 pg Mean Corpuscular Hemoglobin Concent 33.2 32.0-36.0 g/dL Red Cell Distribution Width 15.4 H 11.8-14.3 % Platelet Count 163 140-450 10^3/uL Mean Platelet Volume 10.4 6.9-10.8 fL Neutrophils (%) (Auto) 75.6 37.0-80.0 % Lymphocytes (%) (Auto) 13.5 10.0-50.0 % Monocytes (%) (Auto) 9.5 0.0-12.0 % Eosinophils (%) (Auto) 1.2 0.0-7.0 % Basophils (%) (Auto) 0.2 0.0-2.0 % Neutrophils # (Auto) 6.5 1.6-8.6 10 ^3/uL Lymphocytes # (Auto) 1.2 0.4-5.4 10 ^3/uL Monocytes # (Auto) 0.8 0-1.3 10 ^3/uL Eosinophils # (Auto) 0.1 0-0.8 10 ^3/uL Basophils # (Auto) 0 0-0.2 10 ^3/uL Nucleated Red Blood Cells 0.1 % D-Dimer, Quantitative 2.45 H 0.0-0.49 mg/L FEU Sodium Level 142 136-145 mmol/L Potassium Level 4.7 3.5-5.1 mmol/L Chloride Level 107 98-107 mmol/L Carbon Dioxide Level 26 20-31 mmol/L Anion Gap 9 5-15 Blood Urea Nitrogen 17 9-23 mg/dL Creatinine 0.77 0.550-1.02 mg/dL Glomerular Filtration Rate Calc 84 >90 mL/min BUN/Creatinine Ratio 22.1 H 10.0-20.0 Serum Glucose 151 H 74-106 mg/dL Calcium Level 9.6 8.7-10.4 mg/dL Total Bilirubin 0.6 0.2-1.0 mg/dL Aspartate Amino Transferase (AST) 16 13-40 U/L Alanine Aminotransferase (ALT) 14 7-40 U/L Alkaline Phosphatase 90 46-116 U/L Troponin I High Sensitivity < 3 L </=34 ng/L B-Type Natriuretic Peptide 12.31 0-100 pg/mL Total Protein 6.6 5.7-8.2 g/dL Albumin 4.4 3.2-4.8 g/dL Lipase 29 12-53 U/L [place] [address] Ph: [phone] DIAGNOSTIC IMAGING Diagnostic Imaging Report : [id number] Signed PATIENT: EDGARDO HERNANDEZ ACCT: [id number] UNIT: [id number] : 1955 LOC: ER ROOM / BED: / AGE / SEX: 69 / F ADM STATUS: REG ER SERVICE 1635 ORDERING PHYSICIAN: URMILA ORTEGA DO PROCEDURE(s): ABPL - CT AB PEL WO CON-NO ORAL OR IV REASON: RUQ PAIN, RIB PAIN ORDER NUMBER(s): [id number], ACCESSION NUMBER(s): [id number] Exam: CT CT AB PEL WO CON-NO ORAL OR IV History: RUQ PAIN, RIB PAIN Comparison Study: [facility] on DOS: 09/14/22 TECHNIQUE: Multidetector CT of the abdomen and pelvis was performed from lung bases to pubic symphysis. Imaging was performed without IV contrast. Axial, coronal, and sagittal multiplanar reformats were obtained from the axial data set by the technologist. RADIATION DOSE: DLP 1215.81 mGy.cm; CTDI vol 20.93 mGy. Findings: Lungs: Bilateral lower lobe and right middle lobe atelectasis versus ground-gl ass opacification. Heart: No cardiomegaly or pericardial effusion. Liver: Unremarkable. Gallbladder: Cholelithiasis without evidence of acute cholecystitis. Spleen: Unremarkable Pancreas: Unremarkable Adrenals: 1.9 cm left adrenal nodule Kidneys: Bilateral nonobstructive nephrolithiasis. Left renal cyst. GI tract: Diverticulosis without evidence of acute diverticulitis. : Unremarkable. Vasculature: Mild aortoiliac atherosclerosis. Lymphadenopathy: Absent Peritoneum: No ascites Musculoskeletal: Mild multilevel degenerative changes of the thoracolumbar spine. Soft tissues: Unremarkable Impression: 1. No acute abdominopelvic abnormalities. 2. Cholelithiasis without evidence of acute cholecystitis. 3. Diverticulosis without evidence of acute diverticulitis. 4. 1.9 cm left adrenal nodule is incompletely characterized, but appears similar to 09/14/2022. 5. Bilateral lower lobe and right middle lobe atelectasis versus an infectious/inflammatory etiology. ATED BY: TAYLOR TEJADA DO DICTATED DATE/TIME: 02/11/25 174 SIGNED BY: TAYLOR TEJADA DO SIGNED DATE/TIME: 02/11/25 174 CC: Time of 1ST Reevaluation: 00:00 Reevaluation 1ST: Patient Education/Counseling: Diagnosis, Treatment Family Education/Counseling: Other Comments Patient presented with the above HPI.--ribcage-/right upper quadrant abdominal pain---workup was initiated. patient was found with the above mentioned diagnosis. the following medications were ordered: please refer to order lists of meds and tests obtained by myself Dr. Ortega. Patient ED course and VS have been stabilized. Patient has been reassessed in the ED and remained in a stable condition. Pertinent incidental findings were discussed with the patient and/or family. Patient/family voices understanding and is agreeable with plan. Patient has been observed in the ED adequate length of time to insure improvement/stability. Escalation of care considered: Consideration of escalation to observation or admission Chest x-ray suggested pneumonia. Antibiotics initiated. ABG shows hypoxemia and findings showed elevated D-dimer. I suspected pulmonary embolus. I ordered CTA angiogram of the chest. Patient was ADMITTED to the medicine team for further evaluation and treatment of their presentation. Anticoagulation was initiated by the admitting team All the reports of any imaging studies that were ordered by myself were reviewed by myself. SEPSIS Sepsis Screen Physician Orders Ct Ab Pel Wo Con-No Oral Or Iv (02/11/25 16:35) [employer] Salesperson (02/11/25 ) Abg W/ Co-Ox (02/11/25 18:38) Ct Angio Chest Contrast (02/11/25 20:27) Vital Signs Date Time Temp Pulse Resp B/P (MAP) Pulse Ox O2 Delivery O2 Flow Rate FiO2 02/11/25 21:15 96 25 132/77 02/11/25 19:10 116 20 93 Nasal Cannula* 4 36 02/11/25 19:10 97.8 116 20 132/77 (95) 93 97.8 02/11/25 19:00 98.5 118 20 120/74 (89) 91 98.5 02/11/25 17:50 Room Air* 0 21 02/11/25 17:34 98.5 117 20 96/75 (82) 89 98.5 02/11/25 16:33 99.0 116 22 123/78 (93) 96 99.0 Laboratory Tests Test 02/11/25 16:50 White Blood Count 8.6 10^3/uL (4.4-10.8) Departure 1 Departure Time of Disposition: 17:49 Impression: Primary Impression: Pneumonia Additional Impressions: Chest pain Hypoxemia Elevated d-dimer Pulmonary embolus Abnormal finding on CT scan Disposition: ADMITTED INPATIENT Admit to: [facility] Condition: Guarded Additional Instructions: [place] [address] Ph: [phone] DIAGNOSTIC IMAGING Diagnostic Imaging Report : [id number] Signed PATIENT: EDGARDO HERNANDEZ ACCT: [id number] UNIT: [id number] : 1955 LOC: ER ROOM / BED: / AGE / SEX: 69 / F ADM STATUS: REG ER SERVICE 1635 ORDERING PHYSICIAN: URMILA ORTEGA DO PROCEDURE(s): ABPL - CT AB PEL WO CON-NO ORAL OR IV REASON: RUQ PAIN, RIB PAIN ORDER NUMBER(s): [id number], ACCESSION NUMBER(s): [id number] Exam: CT CT AB PEL WO CON-NO ORAL OR IV History: RUQ PAIN, RIB PAIN Comparison Study: [facility] on DOS: 09/14/22 TECHNIQUE: Multidetector CT of the abdomen and pelvis was performed from lung bases to pubic symphysis. Imaging was performed without IV contrast. Axial, coronal, and sagittal multiplanar reformats were obtained from the axial data set by the technologist. RADIATION DOSE: DLP 1215.81 mGy.cm; CTDI vol 20.93 mGy. Findings: Lungs: Bilateral lower lobe and right middle lobe atelectasis versus ground- glass opacification. Heart: No cardiomegaly or pericardial effusion. Liver: Unremarkable. Gallbladder: Cholelithiasis without evidence of acute cholecystitis. Spleen: Unremarkable Pancreas: Unremarkable Adrenals: 1.9 cm left adrenal nodule Kidneys: Bilateral nonobstructive nephrolithiasis. Left renal cyst. GI tract: Diverticulosis without evidence of acute diverticulitis. : Unremarkable. Vasculature: Mild aortoiliac atherosclerosis. Lymphadenopathy: Absent Peritoneum: No ascites Musculoskeletal: Mild multilevel degenerative changes of the thoracolumbar spine. Soft tissues: Unremarkable Impression: 1. No acute abdominopelvic abnormalities. 2. Cholelithiasis without evidence of acute cholecystitis. 3. Diverticulosis without evidence of acute diverticulitis. 4. 1.9 cm left adrenal nodule is incompletely characterized, but appears similar to 09/14/2022. 5. Bilateral lower lobe and right middle lobe atelectasis versus an infectious/inflammatory etiology. ATED BY: TAYLOR TEJADA DO DICTATED DATE/TIME: 02/11/25 174 SIGNED BY: TAYLOR TEJADA DO SIGNED DATE/TIME: 02/11/251743 CC: Discharged With: Self Critical Care Note Critical Care Time?: Yes (45 min-critical care time only) Heart Score Heart Score: Heart Score Response (Comments) Value History Slightly Suspicious 0 EKG Normal 0 Age >65 2 Risk Factors No known risk factors 0 Troponin Normal limit 0 Total 2 URMILA ORTEGA DO Feb 11, 2025 16:45
[2025-02-11 17:30] LABS: Alanine Aminotransferase 14 U/L (7-40); Albumin 4.4 g/dL (3.2-4.8); Alkaline Phosphatase 90 U/L (46-116); Anion Gap 9 (5-15); BUN/Creatinine Ratio 22.1 (10.0-20.0); Bilirubin, Total 0.6 mg/dL (0.2-1.0); Blood Urea Nitrogen 17 mg/dL (9-23); Calcium 9.6 mg/dL (8.7-10.4); Carbon Dioxide 26 mmol/L (20-31); Lipase 29 U/L (12-53); Potassium 4.7 mmol/L (3.5-5.1); Sodium 142 mmol/L (136-145); Total Protein 6.6 g/dL (5.7-8.2)
[2025-02-11 17:32] LABS: Chloride 107 mmol/L (98-107); Glucose 151 mg/dL (74-106)
--- NOTE | 2025-02-11 17:47 | DVH ---
Exam: CT CT AB PEL WO CON-NO ORAL OR IV History: RUQ PAIN, RIB PAIN Comparison Study: [facility] on DOS: 09/14/22 TECHNIQUE: Multidetector CT of the abdomen and pelvis was performed from lung bases to pubic symphysi s. Imaging was performed without IV contrast. Axial, coronal, and sagittal multiplanar reformats were obtained from the axial data set by the technologist. RADIATION DOSE: DLP 1215.81 mGy.cm; CTDI vol 20.93 mGy. Findings: Lungs: Bilateral lower lobe and right middle lobe atelectasis versus ground-glass opacification. Heart: No cardiomegaly or pericardial effusion. Liver: Unremarkable. Gallbladder: Cholelithiasis without evidence of acute cholecystitis. Spleen: Unremarkable Pancreas: Unremarkable Adrenals: 1.9 cm left adrenal nodule Kidneys: Bilateral nonobstructive nephrolithiasis. Left renal cyst. GI tract: Diverticulosis without evidence of acute diverticulitis. : Unremarkable. Vasculature: Mild aortoiliac atherosclerosis. Lymphadenopathy: Absent Peritoneum: No ascites Musculoskeletal: Mild multilevel degenerative changes of the thoracolumbar spine. Soft tissues: Unremarkable Impression: 1. No acute abdominopelvic abnormalities. 2. Cholelithiasis without evidence of acute cholecystitis. 3. Diverticulosis without evidence of acute diverticulitis. 4. 1.9 cm left adrenal nodule is incompletely characterized, but appears similar to 09/14/2022. 5. Bilateral lower lobe and right middle lobe atelectasis versus an infectious/inflammatory etiology.
[2025-02-11 18:00] LABS: Hematocrit 48.5 % (36.0-46.0); Hemoglobin 16.1 g/dL (12.2-16.2); Mean Corpuscular Hemoglobin 29.9 pg (28.0-32.0); Mean Corpuscular Volume 90.2 fL (80.0-100.0); Nucleated Red Blood Cells % 0.1 %
[2025-02-11] MEDS: HYDROcodone-ACET 5/325MG TAB PO ONE (18:35)
[2025-02-11 19:10] VITALS: PULSE 116; RESP 20; O2SAT 93
[2025-02-11 19:32] LABS: COVID19 ANTIGEN SOFIA FIA NEGATIVE (NEGATIVE)
[2025-02-11 19:46] LABS: Base Excess -0.9 mmol/L (-2.0-3.0)
[2025-02-11] MEDS: IOHEXOL 350 MG/ML 100ML IJ ONE (20:36)
[2025-02-11] MEDS: MORPHINE SULFATE 4 MG/ML SYR/VIAL IV ONE (21:15)
[2025-02-11] MEDS: ONDANSETRON HCL 4 MG/2 ML VIAL IV ONE (21:15)
[2025-02-11] MEDS ORDERED: AZITHROMYCIN 500MG/ 250ML 250 ML IV ONE (21:30)
[2025-02-11] MEDS ORDERED: ALBUTEROL SULF 2.5 MG/0.5ML(0.5%) NEB SOLN NEB PRN (21:30)
[2025-02-11] MEDS ORDERED: ENOXAPARIN SOD 40 MG/0.4 ML SYRINGE SC ONE (21:30)
--- NOTE | 2025-02-11 21:36 | DVHHP2 ---
History of Present Illness History of Present Illness Patient is 69 years old female with past medical history of rheumatoid arthritis on Enbrel once every week came with a complaint of right upper abdominal pain. As per patient she has been coughing for last 4-5 days with a mild whitish phlegm production. Patient also endorsed pain in the right upper abdomen started after she hit her stomach with a car seat of her truck while she was fixing the car seat 3 days before. Patient reported she was fixing her car seat but it slided and hit her mid stomach. Patient reported pain is sharp, 10/10, constant, aggravated with movement, coughing. Patient denied any palpitation, fever, diarrhea, acute joint redness or swelling. Initial lab workup revealed elevated D-dimer 2.45, troponin I with a normal limit, blood sugar 151, lipase 29. COVID-[address] scan of the abdomen revealed bilateral lower lung lobe and right middle lobe atelectasis versus ground-glass opacification, cholelithiasis without cholecystitis, diverticulosis without diverticulitis, 1.9 cm left adrenal nodule.CTA revealed-Acute right middle segmental and right lower lobe subsegmental pulmonary emboli with right middle lobe pulmonary infarct. Bilateral lower lobe atelectasis. Emphysema Extensive mural ulcerative plaque within the distal thoracic aorta with associated 3.7 cm an eurysm at the level of the diaphragmatic haitus. Partially imaged 1.6 cm left adrenal lesion, likely an adenoma. Doppler study of the bilateral lower extremity revealed right lower extremity DVT-thrombus in the right popliteal artery. Past Medical History Rheumatoid arthritis, Past Social History Smoker-half pack a day, occasional alcoholic- 3 times a week, denies substance abuse, lives at home Review of Systems Review of Systems Allergy-- PCN Patient was seen today at the bedside. Cardiovascular- deny acute chest pain or palpitation Respiratory denies wheezing Gastrointestinal- denies any rectal bleeding, nausea or vomiting Musculoskeletal-denies acute joint swelling or tenderness or redness Neurological- denies acute dysarthria, dysphagia, change in vision Psychiatry- denies depression or SI or HI Skin- denies acute rash or purpura Allergies: Coded Allergies: Penicillins (Verified Allergy, Unknown, 09/18/22) Pt received CTX dose previously ( 02-18-2019) with no allergic reaction. Medications Current Medications Medications Dose Ordered Sig/Rosario Route Start Time Stop Time Status Last Admin Dose Admin Sodium Chloride 10 ml Q8HR IV 02/11/25 22:00 UNV Acetaminophen/ Hydrocodone Bitart 1 tab Q4HP PRN PO 02/11/25 21:30 UNV Ceftriaxone Sodium 50 ml @ 100 mls/hr DAILY@09 IV 02/12/25 09:00 UNV Azithromycin 250 ml @ 125 mls/hr DAILY IV 02/12/25 10:00 UNV Pantoprazole Sodium 40 mg DAILY@0600 PO 02/12/25 06:00 UNV Enoxaparin Sodium 40 mg DAILY SC 02/12/25 10:00 UNV Albuterol 1.25 mg Q4HPRN PRN NEB 02/11/25 21:30 UNV Ipratropium [place] 0.5 mg Q4HPRN PRN NEB 02/11/25 21:30 UNV Exam Vital Signs Vital Signs Date Time Temp Pulse Resp B/P (MAP) Pulse Ox O2 Delivery O2 Flow Rate FiO2 02/11/25 19:10 116 20 93 Nasal Cannula* 4 36 02/11/25 19:10 97.8 132/77 (95) 97.8 Exam General examination- awake, alert, oriented HEENT- PEERLA, no acute nasal discharge Cardiovascular- S1-S2 audible, rate and rhythm regular, no murmur Respiratory- right lower lung crackles+, right lower chest wall tenderness+ Gastrointestinal-right upper abdominal tenderness+, bowel sound+. Nondistended Musculoskeletal-no acute joint swelling or tenderness or redness Lower extremity- bilateral lower extremity varicose vein present Neurological- cranial nerves intact, no acute dysarthria or dysphagia Psychiatry- denies depression or SI or HI Skin- no acute rash or purpura Labs/Xrays Labs Test 02/11/25 20:57 02/11/25 19:02 02/11/25 18:40 02/11/25 16:50 Range/Units Troponin I High Sensitivity < 3 L </=34 ng/L Blood Gas Specimen Type Arterial Blood Gas Sample Site Right radial Blood Gas Patient Temperature 37.0 Arterial Blood Date Drawn [id number] Arterial Blood pH 7.430 7.350-7.450 Arterial Blood Partial Pressure CO2 35.0 32.0-45.0 mmHg Arterial Blood Partial Pressure O2 51.1 *L 83.0-108.0 mmHg Arterial Blood HCO3 22.7 21.0-28.0 mmol/L Arterial Blood Oxygen Saturation 87.7 L 94.0-98.0 % Arterial Blood Base Excess -0.9 -2.0-3.0 mmol/L Arterial Blood Oxyhemoglobin 83.8 L 94.0-98.0 % Arterial Blood Carboxyhemoglobin 4.0 H 0.5-1.5 % Arterial Blood Methemoglobin 0.5 0.0-1.5 % Cristofer Test Yes Blood Gas Total Hemoglobin 16.40 H 12.0-16.0 g/dL Blood Gas Modality Room air Blood Gas Spontaneous Rate 20 FiO2 % 21.0 Blood Gas Critical Value Read Back yes Blood Gas Notified Whom md juany walker Blood Gas Notified Time [id number] Blood Gas Notified By good humor vendor jocelynn martinez SARS-CoV-2 Antigen (Rapid) Negative NEGATIVE White Blood Count 8.6 4.4-10.8 10^3/uL Red Blood Count 5.37 H 4.0-5.20 10^6/uL Hemoglobin 16.1 12.2-16.2 g/dL Hematocrit 48.5 H 36.0-46.0 % Mean Corpuscular Volume 90.2 80.0-100.0 fL Mean Corpuscular Hemoglobin 29.9 28.0-32.0 pg Mean Corpuscular Hemoglobin Concent 33.2 32.0-36.0 g/dL Red Cell Distribution Width 15.4 H 11.8-14.3 % Platelet Count 163 140-450 10^3/uL Mean Platelet Volume 10.4 6.9-10.8 fL Neutrophils (%) (Auto) 75.6 37.0-80.0 % Lymphocytes (%) (Auto) 13.5 10.0-50.0 % Monocytes (%) (Auto) 9.5 0.0-12.0 % Eosinophils (%) (Auto) 1.2 0.0-7.0 % Basophils (%) (Auto) 0.2 0.0-2.0 % Neutrophils # (Auto) 6.5 1.6-8.6 10 ^3/uL Lymphocytes # (Auto) 1.2 0.4-5.4 10 ^3/uL Monocytes # (Auto) 0.8 0-1.3 10 ^3/uL Eosinophils # (Auto) 0.1 0-0.8 10 ^3/uL Basophils # (Auto) 0 0-0.2 10 ^3/uL Nucleated Red Blood Cells 0.1 % D-Dimer, Quantitative 2.45 H 0.0-0.49 mg/L FEU Sodium Level 142 136-145 mmol/L Potassium Level 4.7 3.5-5.1 mmol/L Chloride Level 107 98-107 mmol/L Carbon Dioxide Level 26 20-31 mmol/L Anion Gap 9 5-15 Blood Urea Nitrogen 17 9-23 mg/dL Creatinine 0.77 0.550-1.02 mg/dL Glomerular Filtration Rate Calc 84 >90 mL/min BUN/Creatinine Ratio 22.1 H 10.0-20.0 Serum Glucose 151 H 74-106 mg/dL Calcium Level 9.6 8.7-10.4 mg/dL Total Bilirubin 0.6 0.2-1.0 mg/dL Aspartate Amino Transferase (AST) 16 13-40 U/L Alanine Aminotransferase (ALT) 14 7-40 U/L Alkaline Phosphatase 90 46-116 U/L Total Protein 6.6 5.7-8.2 g/dL Albumin 4.4 3.2-4.8 g/dL Lipase 29 12-53 U/L Assessment/Plan Assessment/Plan Assessment and plan # acute pulmonary embolism -patient with cough, right upper abdominal and right lower chest pain -D-dimer 2.45 -CTA- Acute right middle segmental and right lower lobe subsegmental pulmonary emboli with right middle lobe pulmonary infarct -pending Doppler study of the bilateral lower extremity -continue IV heparin as per protocol -ordered cardiology consult # Right lower extremity DVT -Doppler study of the bilateral lower extremity revealed right lower extremity DVT-thrombus in the right popliteal artery -continue IV heparin as per protocol # acute pneumonia Gram-positive versus Gram-negative -CT abdomen and pelvis- Bilateral lower lobe and right middle lobe atelectasis versus ground-glass opacification. -continue ceftriaxone 1 g IV daily -continue azithromycin 500 mg p.o. daily -pending sputum and blood culture -continue nebulization as prescribed #Acute hypoxic respiratory failure likely due to PE/pneumonia #Emphysema -continue nebulization as prescribed #Sepsis likely due to pneumonia --continue ceftriaxone 1 g IV daily -continue azithromycin 500 mg p.o. daily -pending sputum and blood culture # thoracic aortic aneurysm 3.7 cm #Cholelithiasis without cholecystitis -follow up outpatient with surgery for further evaluation and care #Diverticulosis without diverticulitis -avoid constipation and maintain adequate hydration # Left adrenal nodule -follow up outpatient with PCP for further evaluation and care # rheumatoid arthritis Diet- Regular PCP- patient could not mentioned the name of the PCP Goals of care, Code status-full code ; discussed with >15 minutes PUD prophylaxis: Pantoprazole DVT prophylaxis: Heparin Plan discussed with Dr. Gay , nursing staff, Total time spent on patient evaluation, chart review, assessment and plan, discussion discussion >35 minutes Plan discussed with: Patient, Other (RN) My Orders Orders - JACKIE LINO RESIDENT Procedure Category Date Status Time Admit ADMIT 02/11/25 Transmitted 21:24 Code Status CODE 02/11/25 Transmitted 21:24 Sodium Chloride Lock PHA 02/11/25 Logged (Saline Lock Ns) 22:00 Hydrocodone-Acet PHA 02/11/25 Logged 5/325mg Tab ([place] 21:30 Complete Blood Count LAB 02/12/25 Verified 04:00 Comprehensive LAB 02/12/25 Verified Metabolic Panel 04:00 Oxygen By Nasal RT 02/11/25 Transmitted Cannula 21:24 Notify Md Of Changes MARCOS 02/11/25 In Process From Base 21:24 Health Technician Hearing For [facility] 02/11/25 In Process 24 Hours 21:24 Ceftriaxone 1gm/50ml PHA 02/12/25 Logged D5w (Rocephin) 09:00 Ceftriaxone 1gm/50ml PHA 02/11/25 Logged D5w (Rocephin) 21:30 Pantoprazole Tablet PHA 02/12/25 Logged (Protonix Tablet) 06:00 Pantoprazole Tablet PHA 02/11/25 Logged (Protonix Tablet) 21:30 Enoxaparin Sodium PHA 02/11/25 Logged (Lovenox) 21:30 Enoxaparin Sodium PHA 02/12/25 Logged (Lovenox) 10:00 Albuterol Medneb PHA 02/11/25 Logged (Ventolin Medneb) 21:30 Ipratropium Medneb PHA 02/11/25 Logged (Atrovent Medneb) 21:30 Azithromycin 500mg/ PHA 02/12/25 Verified 250ml (Zithromax 50 10:00 Azithromycin 500mg/ PHA 02/11/25 Verified 250ml (Zithromax 50 21:30 Magnesium LAB 02/11/25 Logged 21:32 Thyroid Stimulating LAB 02/11/25 Logged Hormone 21:32 Rapid Influenza A&B LAB 02/11/25 Logged 21:32 Date of Service: Feb 11, 2025 Billing Provider: GLADIS GAY MD Common Visit Codes: 86456-PPUEKGX INP/OBS CARE (HIGH) Secondary Visit Codes: 66248-ORNDESTC CARE PLAN 30 MINUTES JACKIE LINO RESIDENT Feb 11, 2025 21:36
[2025-02-11 21:40] VITALS: BP 132/77; PULSE 96; RESP 25; TEMP 97.8; O2SAT 93
[2025-02-11 22:35] VITALS: PULSE 96; RESP 26; O2SAT 88; O2SAT 91
[2025-02-11] MEDS: ALBUTEROL SULF 2.5 MG/0.5ML(0.5%) NEB SOLN NEB SCH (22:35)
[2025-02-11] MEDS: IPRATROPIUM BROM 0.5 MG/2.5ML INH SOL NEB PRN (22:35)
[2025-02-11 22:43] VITALS: PULSE 90; RESP 22; O2SAT 94
[2025-02-11 22:48] VITALS: PULSE 100; RESP 19; O2SAT 92
--- NOTE | 2025-02-11 22:49 | DVH ---
CLINICAL HISTORY: chest pain TECHNIQUE: CT angiogram of the chest was performed with intravenous contrast . 3D MIP reconstructed images were created and archived on the PACS system. This exam was performed according to our depart mental dose optimization program. Up-to-date CT equipment and radiation dose reduction techniques are utilized as appropriate. WID: COMPARISON: None FINDINGS: Lungs: Diffuse centrilobular emphysema. Ground glass 5.7 cm subpleural opacity within the right lower lobe. . Bilateral lung atelectasis. Cardiac: Trace pericardial effusion. Vascular: Ulcerative plaque within the aortic large extending into the descending thoracic area with mural thrombus. The descending thoracic area is aneurysmal measuring 3.7 cm at the . There are pulmo nary artery filling defects within the right middle lobe proximal segmental and right lateral and low er lobe distal subsegmental pulmonary arteries. Lymph nodes: unremarkable Thoracic inlet: unremarkable Bones: Mild degenerative changes noted within the spine. Upper Abdomen: Partially imaged 1.6 cm left adrenal lesion. Small hiatal hernia. IMPRESSION: 1. Acute right middle segmental and right lower lobe subsegmental pulmonary emboli with right middle lobe pulmonary infarct 2. Bilateral lower lobe atelectasis 3. Emphysema 4. Extensive mural ulcerative plaque within the distal thoracic aorta with associated 3.7 cm aneurys m at the level of the diaphragmatic haitus 5. Partially imaged 1.6 cm left adrenal lesion, likely an adenoma Findings discussed with dr. Patterson at 1042PM on 02/11/2025.
[2025-02-11] MEDS ORDERED: HEPARIN SODIUM (PORCINE) 5000 UNITS/ML 1ML VIAL IV ONE (23:15)
[2025-02-11 23:36] LABS: Hematocrit 45.1 % (36.0-46.0); Hemoglobin 14.9 g/dL (12.2-16.2); Mean Corpuscular Hemoglobin 30.0 pg (28.0-32.0); Mean Corpuscular Volume 90.5 fL (80.0-100.0); Nucleated Red Blood Cells % 0.1 %
[2025-02-11] MEDS ORDERED: ETAN50IN10 SUBCUT (23:42)
[2025-02-11 23:51] LABS: INR 1.07 (0.9-1.15); Partial Thromboplastin Time 26.8 SEC (24.5-34.5); Prothrombin Time 11.3 sec (9.3-11.8)
[2025-02-12] VITALS (21 sets, daily range): BP systolic 95–126; BP diastolic 52–83; PULSE 79–102; RESP 16–20; TEMP 97.7–98.9; O2SAT 91–99
[2025-02-12] MEDS: PANTOPRAZOLE 40 MG TAB PO ONE (00:30)
[2025-02-12] MEDS: HYDROcodone-ACET 5/325MG TAB PO PRN (00:30)
[2025-02-12] MEDS: AZITHROMYCIN 250 MG TAB PO ONE (00:30)
[2025-02-12] MEDS: cefTRIAXone 1GM/50ML D5W 50 ML IV ONE (00:32)
[2025-02-12] MEDS: SODIUM CHLOR 0.9% PF (SALINE LOCK) 10ML VIAL/SYR IV SCH (00:32)
[2025-02-12] MEDS: HEPARIN SODIUM (PORCINE) 5000 UNITS/ML 1ML VIAL IV ONE (00:54)
[2025-02-12] MEDS: HEPARIN DRIP/D5W 100UNITS/ML 250 ML IV SCH ×3 (01:24→15:29)
--- NOTE | 2025-02-12 05:20 | DVH ---
Bilateral lower extremity venous duplex Clinical History: PE Comparison: None Technique: Duplex Doppler evaluation of the deep venous systems of both lower extremities from the common femora l veins to the popliteal veins including color Doppler and spectral/pulsed waveform analysis was perf ormed. Findings: RIGHT SIDE: The common femoral vein demonstrates appropriate compressibility and waveform variability. There is compressibility/patency of the great saphenous vein at the proximal thigh. The femoral vein demonstrates appropriate compressibility and waveform variability. The deep femoral vein demonstrates appropriate compressibility and waveform variability. Thrombus in the right popliteal There is normal compressibility at the tibioperoneal trunk. LEFT SIDE: The common femoral vein demonstrates appropriate compressibility and waveform variability. There is compressibility/patency of the great saphenous vein at the proximal thigh. The femoral vein demonstrates appropriate compressibility and waveform variability. The deep femoral vein demonstrates appropriate compressibility and waveform variability. The popliteal vein demonstrates appropriate compressibility and waveform variability. There is normal compressibility at the tibioperoneal trunk. Impression: Right lower extremity DVT. No DVT left lower extremity Critical Result: DVT Findings discussed with CALVIN ROGERS at 02/12/2025 05:18 AM, and acknowledged receipt and understanding of the findings. ..
[2025-02-12] MEDS: PANTOPRAZOLE 40 MG TAB PO SCH (06:10)
[2025-02-12 06:52] LABS: Hematocrit 45.6 % (36.0-46.0); Hemoglobin 15.2 g/dL (12.2-16.2); Mean Corpuscular Hemoglobin 30.1 pg (28.0-32.0); Mean Corpuscular Volume 90.4 fL (80.0-100.0); Nucleated Red Blood Cells % 0.1 %
[2025-02-12 07:11] LABS: Alanine Aminotransferase 11 U/L (7-40); Albumin 4.3 g/dL (3.2-4.8); Alkaline Phosphatase 82 U/L (46-116); Anion Gap 6 (5-15); BUN/Creatinine Ratio 18.6 (10.0-20.0); Blood Urea Nitrogen 13 mg/dL (9-23); Calcium 9.5 mg/dL (8.7-10.4); Carbon Dioxide 26 mmol/L (20-31); Chloride 106 mmol/L (98-107); Potassium 4.2 mmol/L (3.5-5.1); Sodium 138 mmol/L (136-145); Total Protein 6.7 g/dL (5.7-8.2)
[2025-02-12 07:12] LABS: Bilirubin, Total 0.6 mg/dL (0.2-1.0)
[2025-02-12 07:15] LABS: Glucose 129 mg/dL (74-106)
[2025-02-12 07:16] LABS: INR 1.12 (0.9-1.15); Prothrombin Time 11.7 sec (9.3-11.8)
[2025-02-12 07:30] LABS: Partial Thromboplastin Time 78.8 SEC (24.5-34.5)
--- NOTE | 2025-02-12 09:18 | DVHPNRES ---
Progress Note Date Seen: Feb 12, 2025 Resident Creating Document: JENNIE ZALDIVAR RESIDENT Medical Necessity Reason Pt with a Central, PICC or Fol: No Subjective Review of Systems Patient is a 69-year-old female with past medical history of rheumatoid arthritis (on weekly Etanercept) and squamous cell skin carcinoma. She presented to the ED with complains of chest pain, abdominal pain and cough with white phlegm. She had associated sweating, cold clammy skin. Patient started having abdominal and chest pain after a blunt abdominal injury with car seat. She describes the pain as sharp, aggravated with cough. She does not have a history of fever, loss of consciousness, dizziness, burning micturition, bleeding history, use of hormonal contraceptives. She had tachycardia and tachypnea, and was started on IV azithromycin and ceftriaxone. Workup in the ED showed elevated D-dimer. Doppler showed lower extremity DVT. CT angio showed pulmonary emboli in the right middle lobe. She was started on anticoagulation. Personal history: She smokes half pack cigarette daily X 40 years, occasional marijuana use, uses alcohol 2-3 days weekly. Allergy: Remote history of allergy to penicillin. 02/12/25: The patient complained cough, difficulty breathing, chest pain, headache. Pain aggravates with cough and movements. ROS: Constitutional: Patient is in distress. Denies weight loss, fever. HEENT: Complains of headache. Denies changes in vision and hearing. Respiratory & Chest: Chest pain aggravated with coughing & changing positions GI: Sharp abdominal pain, aggravated with coughing and changing positions. Denies nausea, vomiting or diarrhea. : Denies dysuria and urinary frequency. Musculoskeletal: Denies myalgias and joint pain Skin: Denies rash and pruritus. Neurological: Denies dizziness, headache, vision or hearing problems Objective vital signs Vital Sign Date Time Temp Pulse Resp B/P (MAP) Pulse Ox O2 Delivery O2 Flow Rate FiO2 02/12/25 07:25 82 18 94 02/12/25 07:18 Nasal Cannula* 4 36 02/12/25 05:00 97.7 120/83 (95) 97.7 Total Intake and Output 02/11/25 02/11/25 02/12/25 15:00 23:00 07:00 Intake Total 300 ml Balance 300 ml medications Current Medications Medications Dose Ordered Sig/Rosario Route Start Time Stop Time Status Last Admin Dose Admin Sodium Chloride 10 ml Q8HR IV 02/11/25 22:00 02/12/25 06:14 10 ML Acetaminophen/ Hydrocodone Bitart 1 tab Q4HP PRN PO 02/11/25 21:30 02/12/25 06:12 1 TAB Ceftriaxone Sodium 50 ml @ 100 mls/hr DAILY@09 IV 02/12/25 09:00 Pantoprazole Sodium 40 mg DAILY@0600 PO 02/12/25 06:00 02/12/25 06:10 40 MG Ipratropium [place] 0.5 mg Q4HPRN PRN NEB 02/11/25 21:30 02/11/25 22:35 0.5 MG Azithromycin 500 mg DAILY PO 02/12/25 22:00 Albuterol 1.25 mg Q4HWA NEB 02/11/25 22:00 02/12/25 07:18 1.25 MG Heparin Sodium/ Dextrose 250 ml @ 12 mls/hr [id number] IV 02/12/25 08:00 02/12/25 08:01 12 MLS/HR Examination Physical examination General: Patient alert and oriented in person, place and time. Patient following commands. HEENT: Normocephalic, atraumatic, moist mucous membranes Respiratory/pulmonary: Tenderness in chest. Reduced breath sounds in lower lungs bilaterally. Posterior thoracic region shows multiple scaly cancerous lesions. Cardiovascular: Normal heart sounds S1 and S2 with no associated murmurs Abdomen: Abdominal tenderness in the right upper abdomen. No distention. Extremities: Scaly cancerous lesions present on legs bilaterally. Lower extremity bilateral varicose veins present. No pitting edema. Skin: No rashes or pruritus, there is no sacral edema present at this time. Neurological: Intact cranial nerves with no focal neurologic deficits laboratory and microbiology Laboratory Tests 02/12/25 06:30 Test 02/12/25 06:30 Range/Units Serum Glucose 129 H 74-106 mg/dL Problem List/Assessment/Plan Problem List/Assessment/Plan 1. Acute hypoxic respiratory failure 2. Pulmonary emboli with right middle lobe infarct 3. Atelectasis 4. Right popliteal vein DVT - On ABG pO2 51.1 - Doppler study of bilateral lower extremity revealed right lower extremity DVT. Thrombus in right popliteal artery. - Chest CT scan shows acute right middle segmental and right lower lobe subsegmental pulmonary emboli with right middle lobe pulmonary infarct, emphysema, atelectasis. - Echo shows mild LVH with LVEF 55% - CT angiogram shows right middle segmental and lower lobe pulmonary emboli with right middle lobe pulmonary infarct. Atelectasis, emphysema. - Increased pain controlled with [place] 10/325 mg and morphine 2 mg. Receiving O2 5 L. - Continue IV heparin. - Cardiology consulted: Start incentive spirometry every 30 minutes for atelectasis. Continue heparin drip for pulmonary emboli, aspirin 81 mg and atorvastatin 40 mg daily. Discharge plan will include Eliquis 10 mg b.i.d. for 7 days then Eliquis 5 mg b.i.d. for 3 days and follow-up in Cardiology as outpatient. 5. Sepsis due to acute pneumonia, possibly Gram-negative, Gram-positive - Tachycardia and tachypnea on admission. Ordered sputum culture. - Continue ceftriaxone 1 g IV daily and azithromycin 500 mg p.o. daily. - Continue nebulization with albuterol 1.25 mg and ipratropium bromide 0.5 mg. 6. Thoracic artery aneurysm 7. Ulcerative plaque of thoracic aorta, possible traumatic injury/atherosclerotic plaque - CT angio shows extensive mural ulcerative plaque within the distal thoracic aorta, possibly related to blunt abdominal injury. Associated 3.7 cm aneurysm at the level of diaphragmatic hiatus 8. Rheumatoid arthritis on immunosuppressive therapy 9. Hypercoagulable state 10. Squamous cell carcinoma of skin 11. Thrombocytopenia - Recommend follow-up in Rheumatology outpatient. 12. Diverticulosis without diverticulitis 13. Cholelithiasis 14. Adrenal nodule - CT abdomen shows cholelithiasis, without cholecystitis, diverticulosis without diverticulitis. A 1.9 cm left adrenal nodule similar to 09/14/2022. 15. Vitamin-D deficiency - Given vitamin-D 50,000 U supplementation. Goals of care discussed with the patient at bedside for more than 35 minutes. Code: Full Plan discussed with Dr. Martin Plan discussed with: Patient JENNIE ZALDIVAR RESIDENT Feb 12, 2025 09:18
[2025-02-12] MEDS: cefTRIAXone 1GM/50ML D5W 50 ML IV SCH (09:25)
[2025-02-12] MEDS ORDERED: AZITHROMYCIN 500MG/ 250ML 250 ML IV SCH (10:00)
[2025-02-12] MEDS ORDERED: ENOXAPARIN SOD 40 MG/0.4 ML SYRINGE SC SCH (10:00)
[2025-02-12] MEDS ORDERED: ACETAMINOPHEN 325 MG TAB PO ONE (10:45)
[2025-02-12] MEDS ORDERED: HYDROcodone-ACET 5/325MG TAB PO PRN (11:30)
--- NOTE | 2025-02-12 11:52 | DVHSR ---
APPROVED REPORT EXAM: Two-dimensional and M-mode echocardiogram with Doppler and color Doppler. Blood Pressure: 120/83 mmHg INDICATION SOB RISK FACTORS Height: 66, Weight: 185 DIMENSIONS LVDd4.6 (3.8-5.7cm)LA (2D) (1.9-4.0cm)Aortic Root3.7 (2.0-3.7cm) LVDs3.3 (2.5-4.0cm)LA (MM) (1.9-4.0cm)Aortic Cusp Exc2.0 (1.5-2.0cm) EF (%) 56.0 (55-70%)Rt. Atrium (1.9-4.0cm)Asc. Aorta cm Mitral Valve MitralMitral Stenosis E wave0.71m/sMV Mean GR.mmHg A wave0.86m/sMV Peak GR.mmHg E/A ratio0.82D MVAcm2 DECEL [id number] 1/2 [id number] IVRTmsDop MVA3.18cm2 Aortic Valve Aortic ValveAortic Stenosis V10.97m/Aramis Mean GR.4mmHg V21.39m/Aramis Peak GR.8mmHg LVOT Diameter2.2 (1.8-2.4cm)Doppler AVA2.65cm2 Pulmonic Valve V20.91m/s Other Information Technically limited study due to patient sitting straight up during exam. Conclusion lvef 55% mild LVH no severe valve abnormaliites noted RV not well seen but likey normal function and size
[2025-02-12] MEDS: IBUPROFEN 600 MG TAB PO PRN (12:10)
[2025-02-12] MEDS: ERGOCALCIFEROL 50,000 UNIT(1.25MG) CAP PO SCH (14:04)
[2025-02-12] MEDS ORDERED: HYDROcodone-ACET 10/325MG TAB PO PRN (14:30)
[2025-02-12] MEDS: KETOROLAC TROMETH 30 MG/ML 1ML VIAL IV ONE (14:35)
[2025-02-12 14:40] LABS: INR 1.06 (0.9-1.15); Partial Thromboplastin Time 39.4 SEC (24.5-34.5); Prothrombin Time 11.2 sec (9.3-11.8)
--- NOTE | 2025-02-12 14:56 | DVHCONRES ---
Date Seen: Feb 12, 2025 Resident Creating Document: TIFFANIE SULLIVAN RESDIENT History of Present Illness This is a 63-year-old female with past medical history of skin cancer and rheumatoid arthritis came to the hospital due to right upper quadrant pain since 4 days. Per patient, 5 days back she had a trauma to lower abdomen while repairing the car, on subsequent day she developed right upper quadrant pain. Pain is localized, does not radiate anywhere else, 8/10 in intensity, stabbing in nature, exacerbate with taking deep breaths/coughing/and changing position. She also reports of shortness of breaths, cough and generalized weakness. She denies fever, chest pain, and recent sick contact. PMHx: Skin cancer and rheumatoid arthritis Social history: Ex-smoker with 20 pack year history Home medication: Enbrel weekly for rheumatoid arthritis Allergic history: Penicillins Patient seen and examined at the bedside. Patient is still complaining of right upper quadrant pain and shortness of breaths. Family History: Cardiovascular disease G8 MOTHER Diabetes mellitus G8 SISTER Allergies: Coded Allergies: Penicillins (Verified Allergy, Unknown, 09/18/22) Pt received CTX dose previously ( 02-18-2019) with no allergic reaction. Home Meds Reported Medications Etanercept (Enbrel Sureclick) 50 Mg/Ml Inj, 1 SYR SUBCUT QWEEKLY, #4 SYR 5 Refills 02/11/25 Current Medications Current Medications Medications (Trade) Dose Ordered Sig/Rosario Route PRN Reason Start Time Stop Time Status Last Admin Sodium Chloride (Saline Lock Ns) 10 ml Q8HR IV 02/11/25 22:00 02/12/25 06:14 Acetaminophen/ Hydrocodone Bitart ([place] 5/325MG Tab) 1 tab Q4HP PRN PO MODERATE PAIN (4-6 PAIN SCALE) 02/11/25 21:30 02/12/25 11:18 DC 02/12/25 06:12 Ceftriaxone Sodium 50 ml @ 100 mls/hr DAILY@09 IV 02/12/25 09:00 02/12/25 09:25 Azithromycin 250 ml @ 125 mls/hr DAILY IV 02/12/25 10:00 02/11/25 21:42 DC Pantoprazole Sodium (Protonix Tablet) 40 mg DAILY@0600 PO 02/12/25 06:00 02/12/25 06:10 Enoxaparin Sodium (Lovenox) 40 mg DAILY SC 02/12/25 10:00 02/11/25 23:42 DC Albuterol (Ventolin Medneb) 1.25 mg Q4HPRN PRN NEB SHORTNESS OF BREATH 02/11/25 21:30 02/11/25 21:56 DC Ipratropium [place] (Atrovent Medneb) 0.5 mg Q4HPRN PRN NEB SHORTNESS OF BREATH 02/11/25 21:30 02/11/25 22:35 Azithromycin (Zithromax Tablet) 500 mg DAILY PO 02/12/25 22:00 Albuterol (Ventolin Medneb) 1.25 mg Q4HWA NEB 02/11/25 22:00 02/12/25 13:56 Heparin Sodium/ Dextrose 250 ml @ 14 mls/hr [id number] IV 02/11/25 23:15 02/12/25 07:53 DC 02/12/25 01:24 Heparin Sodium/ Dextrose 250 ml @ 12 mls/hr [id number] IV 02/12/25 08:00 02/12/25 08:01 Ibuprofen (Motrin Tablet) 600 mg Q8HP PRN PO MODERATE PAIN (4-6 PAIN SCALE) 02/12/25 10:45 02/12/25 12:10 Acetaminophen/ Hydrocodone Bitart ([place] 5/325MG Tab) 1 tab Q4HP PRN PO FOR SEVERE PAIN (7-10 SCALE) 02/12/25 11:30 Ergocalciferol (Vitamin D 50,000 Unit) 50,000 unit Q7D PO 02/12/25 13:30 02/12/25 14:04 Vital Signs Vital Signs Date Time Temp Pulse Resp B/P (MAP) Pulse Ox O2 Delivery O2 Flow Rate FiO2 02/12/25 14:02 91 18 97 02/12/25 13:56 Nasal Cannula 4.0 02/12/25 13:56 36 02/12/25 09:00 98.6 126/75 (92) 98.6 Physical Exam General Appearance: Alert, Oriented X3, Cooperative, No acute distress HEENT: Atraumatic, PERRLA, EOMI, Mucous membrane moist/pink Respiratory: Decreased breath sound in the right side, tenderness on the right chest Cardiovascular: Regular rate, Normal S1, Normal S2, No murmurs, no chest wall tenderness Abdominal: Tenderness on the right upper quadrant Extremities: No clubbing, No cyanosis, No edema, Normal pulses, No tenderness/swelling Skin: No rashes, No breakdown, No significant lesion Neuro: Normal gait, Normal speech, Strength at 5/5 X4 ext, Normal tone, Sensation intact, Cranial nerves 3-12 NL, Reflexes 2+ Psych/Mental Status: Mental status NL, Mood NL Labs/Diagnostic Data Labs Test 02/12/25 14:10 02/12/25 06:30 02/11/25 21:55 02/11/25 21:44 Range/Units White Blood Count 9.1 4.4-10.8 10^3/uL Red Blood Count 5.05 4.0-5.20 10^6/uL Hemoglobin 15.2 12.2-16.2 g/dL Hematocrit 45.6 36.0-46.0 % Mean Corpuscular Volume 90.4 80.0-100.0 fL Mean Corpuscular Hemoglobin 30.1 28.0-32.0 pg Mean Corpuscular Hemoglobin Concent 33.4 32.0-36.0 g/dL Red Cell Distribution Width 15.2 H 11.8-14.3 % Platelet Count 140 140-450 10^3/uL Mean Platelet Volume 10.1 6.9-10.8 fL Neutrophils (%) (Auto) 68.2 37.0-80.0 % Lymphocytes (%) (Auto) 19.6 10.0-50.0 % Monocytes (%) (Auto) 9.8 0.0-12.0 % Eosinophils (%) (Auto) 1.9 0.0-7.0 % Basophils (%) (Auto) 0.5 0.0-2.0 % Neutrophils # (Auto) 6.2 1.6-8.6 10 ^3/uL Lymphocytes # (Auto) 1.8 0.4-5.4 10 ^3/uL Monocytes # (Auto) 0.9 0-1.3 10 ^3/uL Eosinophils # (Auto) 0.2 0-0.8 10 ^3/uL Basophils # (Auto) 0 0-0.2 10 ^3/uL Nucleated Red Blood Cells 0.1 % Sodium Level 138 136-145 mmol/L Potassium Level 4.2 3.5-5.1 mmol/L Chloride Level 106 98-107 mmol/L Carbon Dioxide Level 26 20-31 mmol/L Anion Gap 6 5-15 Blood Urea Nitrogen 13 9-23 mg/dL Creatinine 0.70 0.550-1.02 mg/dL Glomerular Filtration Rate Calc 95 >90 mL/min BUN/Creatinine Ratio 18.6 10.0-20.0 Serum Glucose 129 H 74-106 mg/dL Hemoglobin A1c 5.9 H <5.7 % A1C Calcium Level 9.5 8.7-10.4 mg/dL Total Bilirubin 0.6 0.2-1.0 mg/dL Aspartate Amino Transferase (AST) 16 13-40 U/L Alanine Aminotransferase (ALT) 11 7-40 U/L Alkaline Phosphatase 82 46-116 U/L Total Protein 6.7 5.7-8.2 g/dL Albumin 4.3 3.2-4.8 g/dL Vitamin B12 Level 399 211-911 pg/mL Vitamin D 25-Hydroxy 29.8 L 30.0-100 ng/mL Folic Acid 20.89 >5.38 ng/mL Influenza Type A Antigen Negative Negative Influenza Type B Antigen Negative Negative Lactic Acid Level 0.8 0.4-2.0 mmol/L Plasma/Serum Blood Alcohol 4.8 <10 mg/dL Test 02/11/25 20:57 02/11/25 19:02 02/11/25 18:49 02/11/25 18:40 Range/Units Magnesium Level 1.7 1.6-2.6 mg/dL Troponin I High Sensitivity < 3 L </=34 ng/L Blood Gas Specimen Type Arterial Blood Gas Sample Site Right radial Blood Gas Patient Temperature 37.0 Arterial Blood Date Drawn [id number] Arterial Blood pH 7.430 7.350-7.450 Arterial Blood Partial Pressure CO2 35.0 32.0-45.0 mmHg Arterial Blood Partial Pressure O2 51.1 *L 83.0-108.0 mmHg Arterial Blood HCO3 22.7 21.0-28.0 mmol/L Arterial Blood Oxygen Saturation 87.7 L 94.0-98.0 % Arterial Blood Base Excess -0.9 -2.0-3.0 mmol/L Arterial Blood Oxyhemoglobin 83.8 L 94.0-98.0 % Arterial Blood Carboxyhemoglobin 4.0 H 0.5-1.5 % Arterial Blood Methemoglobin 0.5 0.0-1.5 % Cristofer Test Yes Blood Gas Total Hemoglobin 16.40 H 12.0-16.0 g/dL Blood Gas Modality Room air Blood Gas Spontaneous Rate 20 FiO2 % 21.0 Blood Gas Critical Value Read Back yes Blood Gas Notified Whom md juany walker Blood Gas Notified Time [id number] Blood Gas Notified By director software jocelynn martinez Thyroid Stimulating Hormone (TSH) 0.96 0.55-4.78 uIU/mL SARS-CoV-2 Antigen (Rapid) Negative NEGATIVE Test 02/11/25 16:50 Range/Units D-Dimer, Quantitative 2.45 H 0.0-0.49 mg/L FEU B-Type Natriuretic Peptide 12.31 0-100 pg/mL Lipase 29 12-53 U/L Assessment Acute hypoxic respiratory failure, likely due to pulmonary emboli Pulmonary emboli Pulmonary infarct, likely due to pulmonary emboli Ulcerative plaque of thoracic aorta, possible traumatic injury/atherosclerotic plaque History of rheumatoid arthritis Atelectasis ? Pneumonia Obesity * EKGs shows normal sinus rhythm with no significant ST or T-wave changes * Serial trop and BNP is within normal limits * Chest CT scan shows, Acute right middle segmental and right lower lobe subsegmental pulmonary emboli with right middle lobe pulmonary infarct, emphysema, atelectasis and Extensive mural ulcerative plaque within the distal thoracic aorta with associated 3.7 cm aneurysm at the level of the diaph ragmatic haitus * Echo shows mild LVH with LVEF 55% Plan/recommendation: * Heparin drip for pulmonary emboli, aspirin and atorvastatin * Pain control for pulmonary infarct * Incentive spirometry for atelectasis * Discharge plan from Cardiology standpoint: Eliquis 10 mg b.i.d. for 7 days, then Eliquis 5 mg b.i.d. for 3 months, follow up with the Cardiology on outpatient basis * We sign off the patient * Rest of plan per primary team Thank you for giving us the opportunity to take care of your patient, please call back if you have any question/concern. Plan discussed with: Patient, Other (RN) TIFFANIE SULLIVAN Feb 12, 2025 14:56
--- NOTE | 2025-02-12 14:57 | CONS ---
Pharmacy Clinical Information: INCREASE HEPARIN DRIP RATE TO 1400 UNITS/HR PER APTT OF 39.4 NEXT APTT DRAW SCHEDULED FOR 2100 PER RX PROTOCOL CALVIN GARCÍA CONFIRMED AND READ BACK Dede Rucker PHARMACIST Feb 12, 2025 14:57
[2025-02-12 16:19] LABS: Triglycerides 82 mg/dL (< 150)
[2025-02-12 16:21] LABS: Cholesterol 179 mg/dL (< 200); HDL Cholesterol 58 mg/dL (40-59)
[2025-02-12] MEDS: ATORVASTATIN 20 MG TAB PO ONE (17:16)
[2025-02-12] MEDS: HYDROcodone-ACET 10/325MG TAB PO PRN (17:17)
[2025-02-12 19:48] LABS: Urine Protein, UAD Negative (Negative)
[2025-02-12 19:56] LABS: Phencyclidine Screen, Urine Neg (NEGATIVE)
[2025-02-12 19:59] LABS: Amphetamine Screen, Urine Pos (NEGATIVE); Barbiturate Scree,Urine Neg (NEGATIVE); Benzodiazephine Screen, Urine Neg (NEGATIVE); Cannabinoid Screen, Urine Neg (NEGATIVE); Cocaine Screen, Urine Neg (NEGATIVE); Opiate Scree,Urine Pos (NEGATIVE)
[2025-02-12] MEDS: AZITHROMYCIN 250 MG TAB PO SCH (21:22)
[2025-02-12 21:26] LABS: INR 1.06 (0.9-1.15); Partial Thromboplastin Time 70.0 SEC (24.5-34.5); Prothrombin Time 11.2 sec (9.3-11.8)
[2025-02-13] VITALS (18 sets, daily range): BP systolic 103–119; BP diastolic 59–70; PULSE 68–110; RESP 18–22; TEMP 97.6–98.5; O2SAT 91–97
[2025-02-13 04:19] LABS: Alanine Aminotransferase 10 U/L (7-40); Albumin 3.7 g/dL (3.2-4.8); Alkaline Phosphatase 74 U/L (46-116); Anion Gap 7 (5-15); BUN/Creatinine Ratio 20.0 (10.0-20.0); Bilirubin, Total 0.4 mg/dL (0.2-1.0); Blood Urea Nitrogen 15 mg/dL (9-23); Calcium 8.9 mg/dL (8.7-10.4); Carbon Dioxide 25 mmol/L (20-31); Potassium 4.1 mmol/L (3.5-5.1); Sodium 140 mmol/L (136-145); Total Protein 6.0 g/dL (5.7-8.2)
[2025-02-13 04:22] LABS: Hematocrit 41.6 % (36.0-46.0); Hemoglobin 14.1 g/dL (12.2-16.2); Mean Corpuscular Hemoglobin 30.4 pg (28.0-32.0); Mean Corpuscular Volume 90.1 fL (80.0-100.0); Nucleated Red Blood Cells % 0.0 %
[2025-02-13 04:30] LABS: INR 1.08 (0.9-1.15); Prothrombin Time 11.4 sec (9.3-11.8)
[2025-02-13 04:31] LABS: Chloride 108 mmol/L (98-107); Glucose 196 mg/dL (74-106)
[2025-02-13 04:53] LABS: Partial Thromboplastin Time 93.7 SEC (24.5-34.5)
[2025-02-13] MEDS: MORPHINE SULFATE INJ 2 MG/ml SYRG IV PRN (05:57)
[2025-02-13] MEDS: HEPARIN DRIP/D5W 100UNITS/ML 250 ML IV SCH ×2 (06:03→13:14)
--- NOTE | 2025-02-13 06:41 | ECG ---
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
[2025-02-13 12:22] LABS: INR 1.03 (0.9-1.15); Partial Thromboplastin Time 46.7 SEC (24.5-34.5); Prothrombin Time 10.9 sec (9.3-11.8)
--- NOTE | 2025-02-13 12:49 | CONS ---
Pharmacy Clinical Information: INCREASE HEPARIN DRIP RATE TO 1300 UNITS/HR PER APTT OF 46.7 (SUBTHERAPEUTIC) NEXT APTT DRAW SCHEDULED FOR 1900 PER RX PROTOCOL. MARCELLO DUKE PHARMACIST Feb 13, 2025 12:49
--- NOTE | 2025-02-13 13:33 | DVHPNRES ---
Progress Note Date Seen: Feb 13, 2025 Resident Creating Document: CAMERON WEBB RESIDENT Has the PT tested + for MRSA If YES, has PT been informed?: No Medical Necessity Reason Pt with a Central, PICC or Fol: No Subjective Review of Systems Patient is a 69-year-old female with past medical history of rheumatoid arthritis (on weekly Etanercept) and squamous cell skin carcinoma. She presented to the ED with complains of chest pain, abdominal pain and cough with white phlegm. She had associated sweating, cold clammy skin. Patient started having abdominal and chest pain after a blunt abdominal injury with car seat. She describes the pain as sharp, aggravated with cough. She does not have a history of fever, loss of consciousness, dizziness, burning micturition, bleeding history, use of hormonal contraceptives. She had tachycardia and tachypnea, and was started on IV azithromycin and ceftriaxone. Workup in the ED showed elevated D-dimer. Doppler showed lower extremity DVT. CT angio showed pulmonary emboli in the right middle lobe. She was started on anticoagulation. Personal history: She smokes half pack cigarette daily X 40 years, occasional marijuana use, uses alcohol 2-3 days weekly. Allergy: Remote history of allergy to penicillin. Objective vital signs Vital Sign Date Time Temp Pulse Resp B/P (MAP) Pulse Ox O2 Delivery O2 Flow Rate FiO2 02/13/25 12:35 68 18 115/76 02/13/25 10:00 95 Nasal Cannula 4.0 02/13/25 10:00 36 02/13/25 09:00 98.4 98.4 Total Intake and Output 02/12/25 02/12/25 02/13/25 15:00 23:00 07:00 Intake Total 1360 ml 700 ml Output Total 1100 ml Balance 1360 ml -400 ml medications Current Medications Medications Dose Ordered Sig/Rosario Route Start Time Stop Time Status Last Admin Dose Admin Sodium Chloride 10 ml Q8HR IV 02/11/25 22:00 02/13/25 05:59 10 ML Ceftriaxone Sodium 50 ml @ 100 mls/hr DAILY@09 IV 02/12/25 09:00 02/13/25 08:53 100 MLS/HR Pantoprazole Sodium 40 mg DAILY@0600 PO 02/12/25 06:00 02/13/25 05:50 40 MG Ipratropium [place] 0.5 mg Q4HPRN PRN NEB 02/11/25 21:30 02/13/25 09:21 0.5 MG Azithromycin 500 mg DAILY PO 02/12/25 22:00 02/13/25 08:55 500 MG Albuterol 1.25 mg Q4HWA NEB 02/11/25 22:00 02/13/25 09:21 1.25 MG Ibuprofen 600 mg Q8HP PRN PO 02/12/25 10:45 02/12/25 12:10 600 MG Ergocalciferol 50,000 unit Q7D PO 02/12/25 13:30 02/12/25 14:04 50,000 UNIT Morphine Sulfate 2 mg Q4HPRN PRN IV 02/12/25 14:30 02/13/25 12:05 2 MG Acetaminophen/ Hydrocodone Bitart 1 tab Q4HP PRN PO 02/12/25 15:15 02/13/25 08:54 1 TAB Atorvastatin Calcium 40 mg HS PO 02/13/25 22:00 Aspirin 81 mg DAILY PO 02/13/25 10:00 02/13/25 08:54 81 MG Heparin Sodium/ Dextrose 250 ml @ 13 mls/hr [id number] IV 02/13/25 12:45 02/13/25 13:14 13 MLS/HR Examination Physical examination General: Patient alert and oriented in person, place and time. Patient following commands. HEENT: Normocephalic, atraumatic, moist mucous membranes Respiratory/pulmonary: Tenderness in the right thoracic chest and right upper quadrant. Lungs are grossly clear with mucous secretion sounds present in both lung meadows. Cardiovascular: Normal heart sounds S1 and S2 with no associated murmurs Abdomen: Abdominal tenderness in the right upper abdomen. No distention. Extremities: Scaly cancerous lesions present on legs bilaterally. Lower extremity bilateral varicose veins present. No pitting edema. Skin: No rashes or pruritus, there is no sacral edema present at this time. Neurological: Intact cranial nerves with no focal neurologic deficits laboratory and microbiology Laboratory Tests 02/13/25 03:36 Test 02/13/25 03:36 Range/Units Serum Glucose 196 H 74-106 mg/dL Microbiology Date/Time Source Procedure Growth Status 02/12/25 15:25 Sputum Gram Stain - Final Resulted 02/12/25 15:25 Sputum Respiratory Culture - Preliminary Resulted 02/11/25 21:44 Blood Blood Culture - Preliminary NO GROWTH AFTER 24 HOURS OF INCUBATION. Resulted Problem List/Assessment/Plan Problem List/Assessment/Plan Assessment/plan Acute hypoxic respiratory failure likely due to pulmonary embolism with right middle lobe infarct Right popliteal vein DVT - On ABG pO2 51.1 - Doppler study of bilateral lower extremity revealed right lower extremity DVT. Thrombus in right popliteal artery. - Chest CT scan shows acute right middle segmental and right lower lobe subsegmental pulmonary emboli with right middle lobe pulmonary infarct, emphysema, atelectasis. - Echo shows mild LVH with LVEF 55% - CT angiogram shows right middle segmental and lower lobe pulmonary emboli with right middle lobe pulmonary infarct. Atelectasis, emphysema. - Increased pain controlled with [place] 10/325 mg and morphine 2 mg. -currently on 4 L of oxygen through nasal cannula saturating 93% - continue heparin drip - Cardiology consulted: Start incentive spirometry every 30 minutes for atelectasis. Continue heparin drip for pulmonary emboli, aspirin 81 mg and atorvastatin 40 mg daily. Discharge plan will include Eliquis 10 mg b.i.d. for 7 days then Eliquis 5 mg b.i.d. for 3 days and follow-up in Cardiology as outpatient. Sepsis due to possible Gram-positive/Gram-negative bacterial pneumonia - Tachycardia and tachypnea on admission. Ordered sputum culture. - Continue ceftriaxone 1 g IV daily and azithromycin 500 mg p.o. daily. - Continue nebulization with albuterol 1.25 mg and ipratropium bromide 0.5 mg. Thoracic artery aneurysm Ulcerative plaque of thoracic aorta, possible traumatic injury/atherosclerotic plaque - CT angio shows extensive mural ulcerative plaque within the distal thoracic aorta, possibly related to blunt abdominal injury. Associated 3.7 cm aneurysm at the level of diaphragmatic hiatus Rheumatoid arthritis on immunosuppressive therapy Hypercoagulable state in the setting of skin cancer Squamous cell carcinoma of skin Thrombocytopenia -continue heparin drip - Recommend follow-up in Rheumatology outpatient. Diverticulosis without diverticulitis Cholelithiasis Adrenal nodule - CT abdomen shows cholelithiasis, without cholecystitis, diverticulosis without diverticulitis. A 1.9 cm left adrenal nodule similar to 09/14/2022. Vitamin-D deficiency - Given vitamin-D 50,000 U supplementation. Goals of care discussed with the patient at bedside for more than 35 minutes, full code Plan discussed with Dr. Martin Plan discussed with: Patient CAMERON WEBB RESIDENT Feb 13, 2025 13:33
--- NOTE | 2025-02-13 19:48 | DVH ---
EXAM: XY R RIB XRAY INDICATION: Rule out fracture TECHNIQUE: 4 views of the right ribs COMPARISON: None FINDINGS/IMPRESSION: No radiographic evidence of an acute osseous abnormality. There is no acute fracture, osseous malalig nment, or aggressive focal osseous lesion. Small to medium right-sided pleural effusion and/or opacit y in the right lung base and correlate with clinical exam. Question additional opacity in the left lung base.
[2025-02-13 19:51] LABS: INR 1.04 (0.9-1.15); Partial Thromboplastin Time 55.4 SEC (24.5-34.5); Prothrombin Time 11.0 sec (9.3-11.8)
[2025-02-13] MEDS: ATORVASTATIN 20 MG TAB PO SCH (21:22)
[2025-02-14] VITALS (20 sets, daily range): BP systolic 103–123; BP diastolic 63–81; PULSE 70–115; RESP 16–20; TEMP 97.6–99.4; O2SAT 90–100
[2025-02-14 01:20] LABS: Chloride 106 mmol/L (98-107); Potassium 4.9 mmol/L (3.5-5.1); Sodium 137 mmol/L (136-145)
[2025-02-14 01:21] LABS: Anion Gap 5 (5-15); Calcium 8.7 mg/dL (8.7-10.4); Carbon Dioxide 26 mmol/L (20-31)
[2025-02-14 01:26] LABS: BUN/Creatinine Ratio 21.6 (10.0-20.0); Blood Urea Nitrogen 16 mg/dL (9-23)
[2025-02-14 01:27] LABS: INR 1.03 (0.9-1.15); Partial Thromboplastin Time 57.5 SEC (24.5-34.5); Prothrombin Time 10.9 sec (9.3-11.8)
[2025-02-14 01:28] LABS: Glucose 218 mg/dL (74-106)
[2025-02-14 08:26] LABS: Hematocrit 41.1 % (36.0-46.0); Hemoglobin 13.6 g/dL (12.2-16.2); Mean Corpuscular Hemoglobin 29.9 pg (28.0-32.0); Mean Corpuscular Volume 90.1 fL (80.0-100.0); Nucleated Red Blood Cells % 0.1 %
[2025-02-14 08:40] LABS: INR 1.03 (0.9-1.15); Partial Thromboplastin Time 57.6 SEC (24.5-34.5); Prothrombin Time 10.9 sec (9.3-11.8)
[2025-02-14] MEDS ORDERED: ALPRAZolam 0.25 MG TAB PO PRN (14:45)
[2025-02-14] MEDS ORDERED: ACETAMINOPHEN 325 MG TAB PO PRN (14:45)
--- NOTE | 2025-02-14 19:00 | DVHPNRES ---
Progress Note Date Seen: Feb 14, 2025 Resident Creating Document: JENNIE ZALDIVAR RESIDENT Has the PT tested + for MRSA If YES, has PT been informed?: No Medical Necessity Reason Pt with a Central, PICC or Fol: No Subjective Review of Systems Patient is a 69-year-old female with past medical history of rheumatoid arthritis (on weekly Etanercept) and squamous cell skin carcinoma. She presented to the ED with complains of chest pain, abdominal pain and cough with white phlegm. She had associated sweating, cold clammy skin. Patient started having abdominal and chest pain after a blunt abdominal injury with car seat. She describes the pain as sharp, aggravated with cough. She does not have a history of fever, loss of consciousness, dizziness, burning micturition, bleeding history, use of hormonal contraceptives. She had tachycardia and tachypnea, and was started on IV azithromycin and ceftriaxone. Workup in the ED showed elevated D-dimer. Doppler showed lower extremity DVT. CT angio showed pulmonary emboli in the right middle lobe. She was started on anticoagulation. Personal history: She smokes half pack cigarette daily X 40 years, occasional marijuana use, uses alcohol 2-3 days weekly. Allergy: Remote history of allergy to penicillin. 02/14/25: Patient is seen at bedside. Tachycardia. Patient complains of intractable pain rating 10/10. She is tearful, anxious looking. Complains of cough with bloody phlegm. She is currently doing spirometry. No growth on sputum culture. Reports mild pain in right calf. ROS: Constitutional: Patient is in visible distress. Denies weight loss, fever and chills. HEENT: Denies changes in vision and hearing. Respiratory: Complains of 10/10 chest pain Cardiovascular: Complains of chest discomfort GI: Mild upper abdominal pain. No nausea, vomiting and diarrhea. : Denies dysuria and urinary frequency. Musculoskeletal: Denies myalgias and joint pain Skin: Denies rash and pruritus. Neurological: Denies dizziness, headache, vision or hearing problems Objective vital signs Vital Sign Date Time Temp Pulse Resp B/P (MAP) Pulse Ox O2 Delivery O2 Flow Rate FiO2 02/14/25 17:00 97.6 102 20 103/63 (76) 95 97.6 02/14/25 13:44 Nasal Cannula 4.0 02/14/25 13:44 36 Total Intake and Output 7/01/0302/13/25 02/14/25 15:00 23:00 07:00 Intake Total 22 ml 660 ml 1000 ml Balance 22 ml 660 ml 1000 ml medications Current Medications Medications Dose Ordered Sig/Rosario Route Start Time Stop Time Status Last Admin Dose Admin Sodium Chloride 10 ml Q8HR IV 02/11/25 22:00 02/14/25 14:00 10 ML Ceftriaxone Sodium 50 ml @ 100 mls/hr DAILY@09 IV 02/12/25 09:00 02/14/25 09:13 100 MLS/HR Pantoprazole Sodium 40 mg DAILY@0600 PO 02/12/25 06:00 02/14/25 05:38 40 MG Ipratropium [place] 0.5 mg Q4HPRN PRN NEB 02/11/25 21:30 02/14/25 13:44 0.5 MG Azithromycin 500 mg DAILY PO 02/12/25 22:00 02/14/25 10:54 500 MG Albuterol 1.25 mg Q4HWA NEB 02/11/25 22:00 02/14/25 13:44 1.25 MG Ergocalciferol 50,000 unit Q7D PO 02/12/25 13:30 02/12/25 14:04 50,000 UNIT Atorvastatin Calcium 40 mg HS PO 02/13/25 22:00 02/13/25 21:22 40 MG Aspirin 81 mg DAILY PO 02/13/25 10:00 02/14/25 09:13 81 MG Heparin Sodium/ Dextrose 250 ml @ 13 mls/hr [id number] IV 02/13/25 12:45 02/14/25 07:57 13 MLS/HR Alprazolam 0.25 mg Q12HP PRN PO 02/14/25 14:45 Acetaminophen 325 mg Q6HP PRN PO 02/14/25 14:45 Acetaminophen/ Hydrocodone Bitart 1 tab Q4HP PRN PO 02/14/25 14:45 Morphine Sulfate 2 mg Q6HPRN PRN IV 02/14/25 14:45 Examination General: Patient is in apparent distress. Patient alert and oriented in person, place and time. Patient following commands. HEENT: Normocephalic, atraumatic, moist mucous membranes Respiratory/pulmonary: Tenderness in the right thoracic chest and right upper quadrant. Lungs are grossly clear with mucous secretion sounds present in both lung meadows. Cardiovascular: Normal heart sounds S1 and S2 with no associated murmurs Abdomen: Abdominal tenderness in the right upper abdomen. No distention. Extremities: Mild tenderness in the right calf. Scaly cancerous lesions present on legs bilaterally. Lower extremity bilateral varicose veins present. No pitting edema. Skin: No rashes or pruritus, there is no sacral edema present at this time. Neurological: Intact cranial nerves with no focal neurologic deficits laboratory and microbiology Laboratory Tests 02/14/25 07:24 02/14/25 01:03 Test 02/14/25 01:03 Range/Units Serum Glucose 218 H 74-106 mg/dL Microbiology Date/Time Source Procedure Growth Status 02/12/25 15:25 Sputum Gram Stain - Final Resulted 02/12/25 15:25 Sputum Respiratory Culture - Preliminary Resulted 02/11/25 21:44 Blood Blood Culture - Preliminary NO GROWTH AFTER 48 HOURS OF INCUBATION. Resulted Problem List/Assessment/Plan Problem List/Assessment/Plan 1. Acute hypoxic respiratory failure 2. Pulmonary emboli with right middle lobe infarct 3. Atelectasis 4. Right popliteal vein DVT - On ABG pO2 51.1 - Doppler study of bilateral lower extremity revealed right lower extremity DVT. Thrombus in right popliteal artery. - Chest CT scan shows acute right middle segmental and right lower lobe subsegmental pulmonary emboli with right middle lobe pulmonary infarct, emphysema, atelectasis. - Echo shows mild LVH with LVEF 55% - CT angiogram shows right middle segmental and lower lobe pulmonary emboli with right middle lobe pulmonary infarct. Atelectasis, emphysema. - Pain management using Tylenol, [place], morphine. Start warm compress for calf pain - Receiving O2 4 L. - Continue IV heparin. - Cardiology consulted: Start incentive spirometry every 30 minutes for atelectasis. Continue heparin drip for pulmonary emboli, aspirin 81 mg and atorvastatin 40 mg daily. Discharge plan will include Eliquis 10 mg b.i.d. for 7 days then Eliquis 5 mg b.i.d. for 3 days and follow-up in Cardiology as outpatient. - We will start BiPAP for pulmonary rehabilitation with 8/ 4 cm/H2O X 3 hours daily. 5. Sepsis due to acute pneumonia, possibly Gram-negative, Gram-positive - Tachycardia and tachypnea on admission. Sputum culture negative. - Continue ceftriaxone 1 g IV daily and azithromycin 500 mg p.o. daily. - Continue nebulization with albuterol 1.25 mg and ipratropium bromide 0.5 mg. 6. Thoracic artery aneurysm 7. Ulcerative plaque of thoracic aorta, possible traumatic injury/atherosclerotic plaque - CT angio shows extensive mural ulcerative plaque within the distal thoracic aorta, possibly related to blunt abdominal injury. Associated 3.7 cm aneurysm at the level of diaphragmatic hiatus 8. Rheumatoid arthritis on immunosuppressive therapy 9. Hypercoagulable state 10. Squamous cell carcinoma of skin 11. Thrombocytopenia - Recommend follow-up in Rheumatology outpatient. 12. Diverticulosis without diverticulitis 13. Cholelithiasis 14. Adrenal nodule - CT abdomen shows cholelithiasis, without cholecystitis, diverticulosis without diverticulitis. A 1.9 cm left adrenal nodule similar to 09/14/2022. 15. Vitamin-D deficiency - Given vitamin-D 50,000 U supplementation. 16. Anxiety - Start Lorazepam 0.25 mg daily. Goals of care discussed with the patient at bedside for more than 25 minutes. Code: Full Plan discussed with Dr. Martin Plan discussed with: Patient My Orders My Orders Orders - JENNIE ZALDIVAR RESIDENT Procedure Category Date Status Time Alprazolam Tablet PHA 02/14/25 In Process (Xanax Tablet) 14:45 Acetaminophen Tablet PHA 02/14/25 In Process (Tylenol Tablet) 14:45 Warm Compresses ORDERS 02/14/25 Transmitted 14:43 BIPAP RT 02/14/25 Logged 14:43 Hydrocodone-Acet PHA 02/14/25 In Process 10/325mg Tab ([place] 14:45 Morphine Sulfate PHA 02/14/25 In Process Injection 14:45 JENNIE ZALDIVAR RESIDENT Feb 14, 2025 19:00
[2025-02-14] MEDS: MORPHINE SULFATE INJ 2 MG/ml SYRG IV PRN (21:22)
[2025-02-14] MEDS: CYCLOBENZAPRINE HCL 10 MG TAB PO SCH (22:07)
[2025-02-15] VITALS (20 sets, daily range): BP systolic 104–143; BP diastolic 63–83; PULSE 88–101; RESP 16–19; TEMP 97.3–98.9; O2SAT 91–97
[2025-02-15] MEDS: HYDROcodone-ACET 10/325MG TAB PO PRN (00:29)
[2025-02-15 07:21] LABS: Hematocrit 38.9 % (36.0-46.0); Hemoglobin 12.9 g/dL (12.2-16.2); Mean Corpuscular Hemoglobin 30.2 pg (28.0-32.0); Mean Corpuscular Volume 90.7 fL (80.0-100.0); Nucleated Red Blood Cells % 0.0 %
[2025-02-15 07:37] LABS: INR 1.05 (0.9-1.15); Partial Thromboplastin Time 52.2 SEC (24.5-34.5); Prothrombin Time 11.1 sec (9.3-11.8)
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
[2025-02-16] VITALS (17 sets, daily range): BP systolic 103–125; BP diastolic 60–82; PULSE 80–113; RESP 16–20; TEMP 97.9–98.5; O2SAT 89–100
[2025-02-16 05:57] LABS: Hematocrit 39.8 % (36.0-46.0); Hemoglobin 13.4 g/dL (12.2-16.2); Mean Corpuscular Hemoglobin 30.5 pg (28.0-32.0); Mean Corpuscular Volume 90.6 fL (80.0-100.0); Nucleated Red Blood Cells % 0.1 %
[2025-02-16 06:34] LABS: Alanine Aminotransferase 21 U/L (7-40); Albumin 3.8 g/dL (3.2-4.8); Alkaline Phosphatase 71 U/L (46-116); Anion Gap 7 (5-15); BUN/Creatinine Ratio 16.7 (10.0-20.0); Blood Urea Nitrogen 10 mg/dL (9-23); Calcium 8.8 mg/dL (8.7-10.4); Carbon Dioxide 25 mmol/L (20-31); Chloride 110 mmol/L (98-107); Glucose 104 mg/dL (74-106); Potassium 3.9 mmol/L (3.5-5.1); Sodium 142 mmol/L (136-145); Total Protein 6.0 g/dL (5.7-8.2)
[2025-02-16 06:35] LABS: Bilirubin, Total 0.2 mg/dL (0.2-1.0)
[2025-02-16] MEDS: HEPARIN SODIUM (PORCINE) 5000 UNITS/ML 1ML VIAL IV ONE ×2 (06:58→07:01)
[2025-02-16] MEDS: HEPARIN DRIP/D5W 100UNITS/ML 250 ML IV SCH ×2 (07:01→14:39)
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
[2025-02-16 14:15] LABS: INR 1.07 (0.9-1.15); Prothrombin Time 11.3 sec (9.3-11.8)
[2025-02-16 14:17] LABS: Partial Thromboplastin Time 78.9 SEC (24.5-34.5)
--- NOTE | 2025-02-16 14:37 | CONS ---
Pharmacy Clinical Information: DECREASE HEPARIN DRIP RATE TO 1400 UNITS/HR PER APTT OF 78.9 NEXT APTT DRAW SCHEDULED FOR 2029 PER RX PROTOCOL CALVIN MENDES CONFIRMED AND READBACK Dede Rucker PHARMACIST Feb 16, 2025 14:37
[2025-02-16 18:01] LABS: Base Excess 0.7 mmol/L (-2.0-3.0)
[2025-02-16] MEDS: MELATONIN 5 MG TAB PO ONE (21:06)
[2025-02-16 22:15] LABS: INR 1.04 (0.9-1.15); Partial Thromboplastin Time 56.7 SEC (24.5-34.5); Prothrombin Time 11.0 sec (9.3-11.8)
[2025-02-17] VITALS (20 sets, daily range): BP systolic 103–124; BP diastolic 56–77; PULSE 88–111; RESP 16–19; TEMP 97.9–98.4; O2SAT 91–99
[2025-02-17 03:41] LABS: Hematocrit 41.0 % (36.0-46.0); Hemoglobin 13.6 g/dL (12.2-16.2); Mean Corpuscular Hemoglobin 29.8 pg (28.0-32.0); Mean Corpuscular Volume 89.8 fL (80.0-100.0); Nucleated Red Blood Cells % 0.1 %
[2025-02-17 03:51] LABS: INR 1.03 (0.9-1.15); Partial Thromboplastin Time 68.1 SEC (24.5-34.5); Prothrombin Time 10.9 sec (9.3-11.8)
[2025-02-17 03:53] LABS: Alanine Aminotransferase 37 U/L (7-40); Albumin 3.8 g/dL (3.2-4.8); Alkaline Phosphatase 71 U/L (46-116); Anion Gap 5 (5-15); BUN/Creatinine Ratio 16.2 (10.0-20.0); Blood Urea Nitrogen 11 mg/dL (9-23); Calcium 8.9 mg/dL (8.7-10.4); Carbon Dioxide 28 mmol/L (20-31); Potassium 4.2 mmol/L (3.5-5.1); Sodium 141 mmol/L (136-145); Total Protein 6.0 g/dL (5.7-8.2)
[2025-02-17 03:58] LABS: Bilirubin, Total 0.2 mg/dL (0.2-1.0); Chloride 108 mmol/L (98-107); Glucose 173 mg/dL (74-106)
[2025-02-17 09:53] LABS: INR 1.06 (0.9-1.15); Partial Thromboplastin Time 62.6 SEC (24.5-34.5); Prothrombin Time 11.2 sec (9.3-11.8)
[2025-02-17] MEDS ORDERED: HYDR-4902 PO ×2 (11:11→15:51)
[2025-02-17] MEDS ORDERED: BACL10TA PO ×2 (11:11→15:51)
[2025-02-17] MEDS ORDERED: APIX5TAB PO ×2 (13:15→15:51)
[2025-02-17] MEDS ORDERED: AZIT-43 PO (13:15)
[2025-02-17] MEDS: APIXABAN 5 MG TAB PO SCH (14:32)
[2025-02-17] MEDS ORDERED: AZIT500T66 PO (15:51)
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
[2025-02-18] VITALS (8 sets, daily range): BP systolic 115–119; BP diastolic 57–82; PULSE 91–111; RESP 18–19; TEMP 98–98.4; O2SAT 90–93
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
== END 2025-02-18 12:30 | disposition home or self-care (01) | DRG 871 ==
LOC: EDBD 16:24 → ER 16:24 → EDUNIT# 16:24 → OVERFLOW 21:24 → TELE-WESTW 21:28 → OVERFLOW 21:28 → TELE-WESTW 23:58
PROVIDERS: ADMIT Student in an Organized Health Care Education/Training Program; ATTEND Emergency Medicine
PROC: 5A09357 Assistance with Respiratory Ventilation, Less than 24 Consecutive Hours, Continuous Positive Airway Pressure (ICD-10-PCS; principal; 2025-02-14)
DX: A41.59 Other Gram-negative sepsis (principal); I26.93 Single subsegmental thrombotic pulmonary embolism without acute cor pulmonale; J15.69 Pneumonia due to other Gram-negative bacteria; J96.01 Acute respiratory failure with hypoxia; I74.3 Embolism and thrombosis of arteries of the lower extremities; I82.431 Acute embolism and thrombosis of right popliteal vein; D84.821 Immunodeficiency due to drugs; D68.59 Other primary thrombophilia; D69.6 Thrombocytopenia, unspecified; J43.9 Emphysema, unspecified; Z20.822 Contact with and (suspected) exposure to COVID-19; E66.9 Obesity, unspecified; M06.8A Other specified rheumatoid arthritis, other specified site; I71.20 Thoracic aortic aneurysm, without rupture, unspecified; F17.210 Nicotine dependence, cigarettes, uncomplicated; C44.82 Squamous cell carcinoma of overlapping sites of skin; E55.9 Vitamin D deficiency, unspecified; K80.20 Calculus of gallbladder without cholecystitis without obstruction; K57.30 Diverticulosis of large intestine without perforation or abscess without bleeding; E27.8 Other specified disorders of adrenal gland; F41.9 Anxiety disorder, unspecified; Z68.28 Body mass index [BMI] 28.0-28.9, adult; Z88.0 Allergy status to penicillin; Z83.3 Family history of diabetes mellitus; Z82.49 Family history of ischemic heart disease and other diseases of the circulatory system
CPT/HCPCS: 36415; 36600; 71101; 71275; 74176; 80048; 80053; 80061; 80307; 80320; 81001; 82306; 82607; 82746; 82805; 83036; 83605; 83690; 83735; 83880; 84443; 84484; 85025; 85379; 85610; 85730; 87040; 87070; 87205; 87426; 87804; 93005; 93306; 93970; 94640; 94660; 96365; 96375; G0378; J1885; J1956; J2405